=== PATIENT | male | born 1930 | race Caucasian/White ===

== ENCOUNTER → 2016-07-11 | Outpatient (CLI) | payer MEDICARE, BC ==
[2016-07-11 15:07] LABS: Blood Urea Nitrogen 20 mg/dL (9-20); Non-African American GFR(MDRD) 51 (>60 ml/min/1.73 sqM)
== END | disposition home or self-care (01) ==
LOC: LABWHC1 14:24
PROVIDERS: ATTEND Physical Medicine & Rehabilitation
DX: M50.122 Cervical disc disorder at C5-C6 level with radiculopathy (principal); M50.321 Other cervical disc degeneration at C4-C5 level; M47.812 Spondylosis without myelopathy or radiculopathy, cervical region; R29.2 Abnormal reflex
CPT/HCPCS: 36415; 82565; 84520

== ENCOUNTER 2016-07-19 19:39 | Emergency (ER) | payer MEDICARE, BC ==
[2016-07-19 19:50] VITALS: BP 142/78; PULSE 74; RESP 20; TEMP 98.4
--- NOTE | 2016-07-19 21:01 | ED ---
General Adult HPI - General Chief complaint: Extremity Problem,Nontraumatic Stated complaint: Shoulder pain Time Seen by Provider: 07/19/16 20:38 Source: patient, family, RN notes reviewed Mode of arrival: wheelchair Limitations: no limitations - History of Present Illness Initial comments: Patient is a pleasant 86-year-old male presenting to the emergency department complaining of right shoulder pain. Symptoms have been present for 8 months. Symptoms have been worse for the past one month. Patient has seen a neurologist for this as well as pain specialist and orthopedic doctor. Patient has had x-rays and MRIs. Patient was told he had disc problems. Pain is worse today than normal. Discomfort is mostly in the right side of the neck and right trapezius region. Discomfort sometimes changes with positions. Patient has dropped staff when pain gets worse however denies any specific weakness. Patient does have burning radiating down the arm. Patient does have a history of foot drop however this has improved with physical therapy and has been present for over a year. No new weakness. - Related Data Home Medications Medication Instructions Recorded Confirmed Losartan [Cozaar] 50 mg PO DAILY 10/29/14 07/19/16 amLODIPine [Norvasc] 5 mg PO DAILY 10/29/14 07/19/16 Aspirin EC [Ecotrin] 81 mg PO HS 11/28/15 07/19/16 Previous Rx's Medication Instructions Recorded traMADol HCl [Ultram] 50 mg PO Q6H PRN #20 tab 07/19/16 Allergies Allergy/AdvReac Type Severity Reaction Status Date / Time Sulfa (Sulfonamide Allergy Unknown Verified 07/19/16 19:50 Antibiotics) Review of Systems ROS Statement: Those systems with pertinent positive or pertinent negative responses have been documented in the HPI. ROS Other: All systems not noted in ROS Statement are negative. Constitutional: Denies: fever Eyes: Denies: eye pain ENT: Denies: ear pain Respiratory: Denies: cough Cardiovascular: Denies: chest pain Endocrine: Denies: fatigue Gastrointestinal: Denies: abdominal pain Genitourinary: Denies: dysuria Musculoskeletal: Reports: other (Shoulder pain) Skin: Denies: rash Neurological: Reports: paresthesias. Denies: headache, weakness Psychiatric: Reports: anxiety Past Medical History Past Medical History: Hypertension History of Any Multi-Drug Resistant Organisms: None Reported Past Surgical History: Cholecystectomy, Hernia Repair Past Psychological History: No Psychological Hx Reported Smoking Status: Never smoker Past Alcohol Use History: Occasional Past Drug Use History: None Reported General Exam Limitations: no limitations General appearance: alert, in no apparent distress Head exam: Present: atraumatic, normocephalic Eye exam: Present: normal appearance, PERRL, EOMI. Absent: nystagmus ENT exam: Present: normal oropharynx Neck exam: Present: tenderness (Mild tenderness posterior and right neck.) Respiratory exam: Present: normal lung sounds bilaterally Cardiovascular Exam: Present: regular rate, normal rhythm GI/Abdominal exam: Present: soft. Absent: tenderness Extremities exam: Present: normal inspection Back exam: Present: tenderness (Mild tenderness right trapezius Just lateral to the neck) Neurological exam: Present: alert, oriented X3, CN II-XII intact. Absent: motor sensory deficit Expanded Patient oriented to: Present: person, place, time Speech: Present: fluid speech Cranial nerves: EOM's Intact: Normal, Facial Sensation: Normal Sensory exam: Upper Extremity Light Touch: Normal, Lower Extremity Light Touch: Normal Motor strength exam: RUE: 5, LUE: 5, RLE: 5, LLE: 5 Eye Response: (4) open spontaneously Motor Response: (6) obeys commands Verbal Response: (5) oriented Psychiatric exam: Present: normal affect, normal mood Skin exam: Absent: rash Course Vital Signs 07/19/16 19:46 Temperature 98.4 F Pulse Rate 74 Respiratory 20 Rate Blood Pressure 142/78 O2 Sat by Pulse 97 Oximetry EKG Findings - EKG Comments: EKG Findings:: Normal sinus rhythm at 64. KS 182. QRS 86. QT 418. QTC 431. Left axis. Normal QRS. Nonspecific T waves. Disposition Clinical Impression: Cervical radiculopathy Disposition: HOME SELF-CARE Condition: Stable Instructions: Cervical Radiculopathy (ED), Neck Pain (ED) Additional Instructions: Please follow-up with your primary care physician and orthopedic doctor on Thursday. Return for uncontrolled pain, weakness, loss of sensation, leg weakness , worsening symptoms or any other concerns. Prescriptions: traMADol HCl [Ultram] 50 mg PO Q6H PRN #20 tab PRN Reason: Pain/Discomfort Referrals: Isak Pedersen MD [Primary Care Provider] - 1-2 days Christos Carrera DO [Doctor of Osteopathic Medicine] - 1-2 days Milan Barba DO [Doctor of Osteopathic Medicine] - 1-2 days Farshad London DO [Doctor of Osteopathic Medicine] - 1-2 days Time of Disposition: 21:01
[2016-07-19] MEDS: KETOROLAC 30 MG/ML 1 ML VIAL IVP STA (21:43)
[2016-07-19] MEDS: MORPHINE SULFATE 4 MG/ML SYRINGE IV STA ×2 (21:43→21:47)
== END 2016-07-19 21:54 | disposition home or self-care (01) ==
LOC: EC 19:39
DX: M54.12 Radiculopathy, cervical region (principal); Z79.82 Long term (current) use of aspirin; Z79.899 Other long term (current) drug therapy; Z88.2 Allergy status to sulfonamides; I10 Essential (primary) hypertension
CPT/HCPCS: 99283; 96375; 96374; J2270; J1885

== ENCOUNTER → 2016-07-21 | Outpatient (CLI) | payer MEDICARE, BC ==
[2016-07-21 15:49] LABS: Basophils % (A) 1 %; CH 30.5; CHCM 33.4; Eosinophils # (A) 0.3 k/uL (0-0.7); Eosinophils % (A) 3 %; HDW 2.61; HGB 15.2 gm/dL (13.0-17.5); Luc # (Auto) 0.11; Luc % (Auto) 1; Lymphocytes # (A) 1.3 k/uL (1.0-4.8); Lymphocytes % (A) 17 %; MCH 29.8 pg (25.0-35.0); MCHC 32.4 g/dL (31.0-37.0); MCV 91.9 fL (80.0-100.0); Mean Platelet Volume 7.4; Monocytes # (A) 0.5 k/uL (0-1.0); Monocytes % (A) 7 %; Neutrophils # (A) 5.6 k/uL (1.3-7.7); Neutrophils % (A) 71 %; RBC 5.12 m/uL (4.30-5.90); RDW 13.7 % (11.5-15.5); WBC 7.8 k/uL (3.8-10.6); WBC (Perox) 7.08
[2016-07-21 17:40] LABS: Appearance,Urine Clear (Clear); Bilirubin,Urine Negative (Negative); Glucose,Urine (UA) Negative (Negative); Ketones,Urine Negative (Negative); Leukocyte Esterase,Urine Negative (Negative); Nitrite,Urine Negative (Negative); PH, Urine 5.5 (5.0-8.0); Protein,Urine Negative (Negative); Specific Gravity,Urine 1.009 (1.001-1.035); UA Billing (MACRO vs. MICRO) CHEM; Urobilinogen,Urine <2.0 mg/dL (<2.0)
== END | disposition home or self-care (01) ==
LOC: LABWHC1 15:22
PROVIDERS: ATTEND Physical Medicine & Rehabilitation
DX: M54.2 Cervicalgia (principal); M50.122 Cervical disc disorder at C5-C6 level with radiculopathy; M50.123 Cervical disc disorder at C6-C7 level with radiculopathy; M50.321 Other cervical disc degeneration at C4-C5 level; M50.322 Other cervical disc degeneration at C5-C6 level; M50.323 Other cervical disc degeneration at C6-C7 level; M47.812 Spondylosis without myelopathy or radiculopathy, cervical region; R29.2 Abnormal reflex
CPT/HCPCS: 36415; 81003; 85025; 87086

== ENCOUNTER 2017-01-06 17:14 | Inpatient (IN) | payer MEDICARE, BC ==
--- NOTE | 2017-01-06 17:47 | ED ---
General Adult HPI - General Chief complaint: Shortness of Breath Stated complaint: SOB Time Seen by Provider: 01/06/17 17:26 Source: patient, RN notes reviewed Mode of arrival: ambulatory Limitations: no limitations - History of Present Illness Initial comments: This is an 86-year-old male presents emergency Department with multiple complaints. Patient states that he has been short of breath over the last 1 week. Patient states that he hashad exertional shortness of breath. He states they usually climbs 3 flights of stairs to his apartment on the third floor but states that he cannot make it up one flight. Patient states that he started having tightness in his chest. Patient states that the shortness breath is better at rest. Patient states he used to be on Lasix life currently is not on any Lasix. Patient states he had an echo which she believes he may have had some mild CHF. Patient states he has not noticed any major swelling of his lower extremities. Patient states he has no history of asthma or COPD. Patient denies fever, chills or any URI symptoms. Patient states that he also has had some confusion which was noticed by his therapist today and that they felt that he needed to be evaluated. Patient is brought to emergency department by his daughter. Patient has had bouts with confusion the past in which he related to TIAs. Patient does take a full dose aspirin daily. Patient also complains of pain that radiates down his left arm. He states his been having problems with his neck in which she is in therapy and states that he occasionally has problems at he has pain that radiates down his right arm but usually not the left. Patient denies any weakness associated with it. Denies any surgeries or facial drooping. Patient's family member the room states that he is at his normal baseline at this time. - Related Data Home Medications Medication Instructions Recorded Confirmed Losartan [Cozaar] 50 mg PO DAILY 10/29/14 01/06/17 amLODIPine [Norvasc] 5 mg PO DAILY 10/29/14 01/06/17 Aspirin EC [Ecotrin] 81 mg PO HS 11/28/15 01/06/17 Acetaminophen [Tylenol] 325 mg PO BID PRN 01/06/17 01/06/17 Gabapentin [Neurontin] 300 mg PO TID 01/06/17 01/06/17 Ibuprofen [Motrin] 200 mg PO DAILY PRN 01/06/17 01/06/17 L.acidoph,Paracasei, B.lactis 1 cap PO DAILY 01/06/17 01/06/17 [Probiotic] Simvastatin [Zocor] 20 mg PO DAILY 01/06/17 01/06/17 Tamsulosin HCl [Flomax] 0.4 mg PO DAILY 01/06/17 01/06/17 methylPREDNISolone [Medrol Dose See Taper PO DIRECTED 01/06/17 01/06/17 Pack] Allergies Allergy/AdvReac Type Severity Reaction Status Date / Time Sulfa (Sulfonamide Allergy Unknown Verified 01/06/17 18:55 Antibiotics) Review of Systems ROS Statement: Those systems with pertinent positive or pertinent negative responses have been documented in the HPI. ROS Other: All systems not noted in ROS Statement are negative. Past Medical History Past Medical History: CVA/TIA, Hypertension History of Any Multi-Drug Resistant Organisms: None Reported Past Surgical History: Cholecystectomy, Hernia Repair Past Psychological History: No Psychological Hx Reported Smoking Status: Never smoker Past Alcohol Use History: Occasional Past Drug Use History: None Reported General Exam Limitations: no limitations General appearance: alert, in no apparent distress Head exam: Present: atraumatic, normocephalic, normal inspection Eye exam: Present: normal appearance, PERRL, EOMI. Absent: scleral icterus, conjunctival injection, periorbital swelling ENT exam: Present: normal exam, normal oropharynx, mucous membranes moist, TM's normal bilaterally, normal external ear exam Neck exam: Present: normal inspection, full ROM. Absent: tenderness, meningismus, lymphadenopathy Respiratory exam: Present: normal lung sounds bilaterally. Absent: respiratory distress, wheezes, rales, rhonchi, stridor Cardiovascular Exam: Present: regular rate, normal rhythm, normal heart sounds. Absent: systolic murmur, diastolic murmur, rubs, gallop, clicks GI/Abdominal exam: Present: soft, normal bowel sounds. Absent: distended, tenderness, guarding, rebound, rigid Extremities exam: Present: normal inspection, full ROM, normal capillary refill. Absent: tenderness, pedal edema, joint swelling, calf tenderness Back exam: Present: full ROM. Absent: tenderness Neurological exam: Present: alert, oriented X3, CN II-XII intact, reflexes normal, other (Ktcder-gi-yeja intact bilaterally without over shooting). Absent : motor sensory deficit Skin exam: Present: warm, dry, intact, normal color. Absent: rash Course Vital Signs 01/06/17 01/06/17 01/06/17 17:17 18:40 19:20 Temperature 98 F 98.3 F 98.0 F Pulse Rate 98 80 77 Respiratory 20 18 16 Rate Blood Pressure 143/76 149/77 156/91 O2 Sat by Pulse 94 L 93 L 96 Oximetry 01/06/17 01/06/17 20:02 20:40 Temperature Pulse Rate 75 74 Respiratory 16 18 Rate Blood Pressure 168/88 174/82 O2 Sat by Pulse 95 95 Oximetry EKG Findings - EKG Comments: EKG Findings:: EKG performed at 17:44 sinus rhythm with first-degree AV block left axis deviation with a rate of 87 NC interval is 236 QS duration 86 QT/QTC 366/440 Medical Decision Making - Lab Data Result diagrams: 01/06/17 17:44 01/06/17 17:44 Lab Results 01/06/17 01/06/17 01/06/17 Range/Units 17:44 17:44 17:44 WBC 7.6 (3.8-10.6) k/uL RBC 5.13 (4.30-5.90) m/uL Hgb 15.8 (13.0-17.5) gm/dL Hct 44.6 (39.0-53.0) % MCV 86.8 (80.0-100.0) fL MCH 30.8 (25.0-35.0) pg MCHC 35.5 (31.0-37.0) g/dL RDW 13.7 (11.5-15.5) % Plt Count 228 (150-450) k/uL Neutrophils % 87 % Lymphocytes % 9 % Monocytes % 3 % Eosinophils % 0 % Basophils % 0 % Neutrophils # 6.6 (1.3-7.7) k/uL Lymphocytes # 0.6 L (1.0-4.8) k/uL Monocytes # 0.2 (0-1.0) k/uL Eosinophils # 0.0 (0-0.7) k/uL Basophils # 0.0 (0-0.2) k/uL PT (9.0-12.0) sec INR (<1.1) APTT (22.0-30.0) sec D-Dimer (<0.60) mg/L FEU Sodium 140 (137-145) mmol/L Potassium 4.5 (3.5-5.1) mmol/L Chloride 105 (98-107) mmol/L Carbon Dioxide 21 L (22-30) mmol/L Anion Gap 14 mmol/L BUN 17 (9-20) mg/dL Creatinine 1.00 (0.66-1.25) mg/dL Est GFR (MDRD) Af Amer >60 (>60 ml/min/1.73 sqM) Est GFR (MDRD) Non-Af >60 (>60 ml/min/1.73 sqM) Glucose 128 H (74-99) mg/dL Calcium 9.9 (8.4-10.2) mg/dL Magnesium 2.1 (1.6-2.3) mg/dL Total Bilirubin 0.5 (0.2-1.3) mg/dL AST 27 (17-59) U/L ALT 34 (21-72) U/L Alkaline Phosphatase 85 (38-126) U/L Total Creatine Kinase 122 (55-170) U/L CK-MB (CK-2) 1.4 (0.0-2.4) ng/mL CK-MB (CK-2) Rel Index 1.1 Troponin I <0.012 (0.000-0.034) ng/mL NT-Pro-B Natriuret Pep pg/mL Total Protein 7.2 (6.3-8.2) g/dL Albumin 4.6 (3.5-5.0) g/dL Urine Color Urine Appearance (Clear) Urine pH (5.0-8.0) Ur Specific [place] (1.001-1.035) Urine Protein (Negative) Urine Glucose (UA) (Negative) Urine Ketones (Negative) Urine Blood (Negative) Urine Nitrite (Negative) Urine Bilirubin (Negative) Urine Urobilinogen (<2.0) mg/dL Ur Leukocyte Esterase (Negative) Urine RBC (0-5) /hpf Urine Mucus (None) /hpf 01/06/17 01/06/17 01/06/17 Range/Units 17:44 17:44 18:45 WBC (3.8-10.6) k/uL RBC (4.30-5.90) m/uL Hgb (13.0-17.5) gm/dL Hct (39.0-53.0) % MCV (80.0-100.0) fL MCH (25.0-35.0) pg MCHC (31.0-37.0) g/dL RDW (11.5-15.5) % Plt Count (150-450) k/uL Neutrophils % % Lymphocytes % % Monocytes % % Eosinophils % % Basophils % % Neutrophils # (1.3-7.7) k/uL Lymphocytes # (1.0-4.8) k/uL Monocytes # (0-1.0) k/uL Eosinophils # (0-0.7) k/uL Basophils # (0-0.2) k/uL PT 10.8 (9.0-12.0) sec INR 1.1 (<1.1) APTT 24.9 (22.0-30.0) sec D-Dimer 0.61 H (<0.60) mg/L FEU Sodium (137-145) mmol/L Potassium (3.5-5.1) mmol/L Chloride (98-107) mmol/L Carbon Dioxide (22-30) mmol/L Anion Gap mmol/L BUN (9-20) mg/dL Creatinine (0.66-1.25) mg/dL Est GFR (MDRD) Af Amer (>60 ml/min/1.73 sqM) Est GFR (MDRD) Non-Af (>60 ml/min/1.73 sqM) Glucose (74-99) mg/dL Calcium (8.4-10.2) mg/dL Magnesium (1.6-2.3) mg/dL Total Bilirubin (0.2-1.3) mg/dL AST (17-59) U/L ALT (21-72) U/L Alkaline Phosphatase (38-126) U/L Total Creatine Kinase (55-170) U/L CK-MB (CK-2) (0.0-2.4) ng/mL CK-MB (CK-2) Rel Index Troponin I (0.000-0.034) ng/mL NT-Pro-B Natriuret Pep 446 pg/mL Total Protein (6.3-8.2) g/dL Albumin (3.5-5.0) g/dL Urine Color Yellow Urine Appearance Clear (Clear) Urine pH 5.5 (5.0-8.0) Ur Specific [place] 1.011 (1.001-1.035) Urine Protein 1+ H (Negative) Urine Glucose (UA) Negative (Negative) Urine Ketones Negative (Negative) Urine Blood Small H (Negative) Urine Nitrite Negative (Negative) Urine Bilirubin Negative (Negative) Urine Urobilinogen <2.0 (<2.0) mg/dL Ur Leukocyte Esterase Negative (Negative) Urine RBC 4 (0-5) /hpf Urine Mucus Rare H (None) /hpf Disposition Clinical Impression: SOB (shortness of breath) on exertion, Unstable angina, TIA (transient ischemic attack) Disposition: ADMITTED IP TO THIS HOSP Condition: Fair Referrals: Liz Arce MD [Primary Care Provider] - 1-2 days
[2017-01-06 18:01] LABS: Basophils % (A) 0 %; CH 30.6; CHCM 35.4; Eosinophils % (A) 0 %; HCT 44.6 % (39.0-53.0); HDW 2.68; HGB 15.8 gm/dL (13.0-17.5); Luc # (Auto) 0.05; Luc % (Auto) 1; Lymphocytes # (A) 0.6 k/uL (1.0-4.8); Lymphocytes % (A) 9 %; MCH 30.8 pg (25.0-35.0); MCHC 35.5 g/dL (31.0-37.0); MCV 86.8 fL (80.0-100.0); Mean Platelet Volume 7.1; Monocytes # (A) 0.2 k/uL (0-1.0); Monocytes % (A) 3 %; Neutrophils # (A) 6.6 k/uL (1.3-7.7); Neutrophils % (A) 87 %; RBC 5.13 m/uL (4.30-5.90); RDW 13.7 % (11.5-15.5); WBC 7.6 k/uL (3.8-10.6); WBC (Perox) 6.79
[2017-01-06 18:16] LABS: INR 1.1 (<1.1); Partial Thromboplastin Time 24.9 sec (22.0-30.0); Prothrombin Time 10.8 sec (9.0-12.0)
[2017-01-06 18:21] LABS: ALT 34 U/L (21-72); AST 27 U/L (17-59); Alkaline Phosphatase 85 U/L (38-126); Anion Gap 14 mmol/L; Blood Urea Nitrogen 17 mg/dL (9-20); Calcium 9.9 mg/dL (8.4-10.2); Carbon Dioxide 21 mmol/L (22-30); Chloride 105 mmol/L (98-107); Creatine Kinase 122 U/L (55-170); Glucose 128 mg/dL (74-99); Magnesium 2.1 mg/dL (1.6-2.3); Non-African American GFR(MDRD) >60 (>60 ml/min/1.73 sqM); Potassium 4.5 mmol/L (3.5-5.1); Sodium 140 mmol/L (137-145); Total Bilirubin 0.5 mg/dL (0.2-1.3); Total Protein 7.2 g/dL (6.3-8.2)
--- NOTE | 2017-01-06 18:24 | XR ---
EXAMINATION TYPE: XR chest 2V DATE OF EXAM: 01/06/2017 COMPARISON: Prior chest x-ray 10/29/2014 HISTORY: Shortness of breath, difficulty breathing TECHNIQUE: Frontal and lateral views of the chest are obtained. FINDINGS: There is no focal air space opacity, pleural effusion, or pneumothorax seen. The cardiac silhouette size is within normal limits. There are overlying cardiac leads. There is evidence of old granulomatous disease. The osseous structures are intact. IMPRESSION: No acute cardiopulmonary process.
--- NOTE | 2017-01-06 18:29 | CT ---
EXAMINATION TYPE: CT brain wo con DATE OF EXAM: 01/06/2017 COMPARISON: Prior head CT 11/28/2015 HISTORY: Episode of weakness and confusion CT DLP: 1012.2 mGycm Automated exposure control for dose reduction was used. Helical acquisition through the brain FINDINGS: Periventricular white matter shows patchy low attenuation. Cortical atrophy is stable. Calvarium is i ntact. No hemorrhage or hydrocephalus. Calvarium is intact. IMPRESSION: STABLE EXAM, NO ACUTE ABNORMALITIES EVIDENT. 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
[2017-01-06 18:33] LABS: Creatine Kinase MB 1.4 ng/mL (0.0-2.4); Troponin I <0.012 ng/mL (0.000-0.034)
[2017-01-06 19:02] LABS: Appearance,Urine Clear (Clear); Bilirubin,Urine Negative (Negative); Glucose,Urine (UA) Negative (Negative); Ketones,Urine Negative (Negative); Leukocyte Esterase,Urine Negative (Negative); Mucus,Urine Rare /hpf; Nitrite,Urine Negative (Negative); PH, Urine 5.5 (5.0-8.0); Particle Count 621; Protein,Urine 1+ (Negative); RBC,Urine 4 /hpf (0-5); Specific Gravity,Urine 1.011 (1.001-1.035); UA Billing (MACRO vs. MICRO) MICRO; Urobilinogen,Urine <2.0 mg/dL (<2.0)
[2017-01-06] MEDS ORDERED: RX INFO: IV CONTRAST WAS GIVEN 1 EACH MISC MISCELLANE PRN (19:04)
--- NOTE | 2017-01-06 20:03 | CT ---
EXAMINATION TYPE: CT chest angio for PE DATE OF EXAM: 01/06/2017 COMPARISON: Chest x-ray same date HISTORY: Shortness of breath CT DLP: 358.9 mGycm Automated exposure control for dose reduction was used. CONTRAST: CT Chest for pulmonary embolism performed with with IV Contrast, patient injected with 100 mL of Omni paque 350. FINDINGS: LUNGS: The lungs are grossly clear, there is no concerning parenchymal mass or nodule identified. So me mild emphysematous changes are suspected. There is no pleural effusion or pneumothorax seen. The tracheobronchial tree is patent. MEDIASTINUM: There is satisfactory enhancement of the pulmonary artery and its branches, there is no CT evidence for pulmonary embolism. There are no greater than 1 cm hilar or mediastinal lymph nodes. Calcified left hilar nodes are present. No pericardial effusion is seen. AORTA: No additional significant abnormality is seen. OTHER: There is a small hiatal hernia present. Coronary artery calcifications are present. Scattered granuloma present within the spleen. Hypodense foci within the liver are indeterminate. The largest is within the inferior right lobe and measures approximately 2.7 cm. There are at least 5 lesions. Pa tient is post cholecystectomy. IMPRESSION: No evident pulmonary embolism. Old granulomatous disease. Hiatal hernia. Coronary artery disease. Ind eterminate liver lesions.
[2017-01-06] MEDS ORDERED: amLODIPine 5 MG TAB PO STA (20:55)
[2017-01-06] MEDS ORDERED: NITROGLYCERIN SL TABS 0.4 MG TAB SUBLINGUAL PRN (21:15)
[2017-01-06] MEDS ORDERED: HEPARIN SODIUM,PORCINE 5,000 UNIT/ML 1 ML VIAL IV ONE (21:15)
[2017-01-06] MEDS: HEPARIN SODIUM,PORCINE/D5W PMX 25,000 UNIT in DEXTROSE/WATER 1 500ML.BAG IV SCH (21:29)
[2017-01-06 23:04] VITALS: BMI 26.4
[2017-01-07 00:13] LABS: Creatine Kinase 111 U/L (55-170)
[2017-01-07 00:27] LABS: Creatine Kinase MB 1.5 ng/mL (0.0-2.4); Troponin I <0.012 ng/mL (0.000-0.034)
[2017-01-07] MEDS ORDERED: Acetaminophen-Codeine 300-30mg TAB PO PRN (00:45)
[2017-01-07] MEDS: GABAPENTIN 300 MG CAP PO SCH ×4 (00:58→21:45)
[2017-01-07 06:42] LABS: Cholesterol 117 mg/dL (<200); HDL Cholesterol 36 mg/dL (40-60); Triglycerides 103 mg/dL (<150)
[2017-01-07 06:47] LABS: Creatine Kinase 87 U/L (55-170)
[2017-01-07 07:00] LABS: Creatine Kinase MB 1.3 ng/mL (0.0-2.4); Troponin I <0.012 ng/mL (0.000-0.034)
[2017-01-07] MEDS ORDERED: ACETAMINOPHEN TAB 325 MG TAB PO PRN (07:50)
[2017-01-07] MEDS: ASPIRIN 325 MG TAB PO SCH ×2 (07:58→08:00)
--- NOTE | 2017-01-07 08:56 | P.CRDCN ---
History of Present Illness Consult date: 01/07/17 Requesting physician: Yonathan Blake Consult reason: shortness of breath Chief complaint: Exertional shortness of breath History of present illness: This is a very pleasant 86-year-old gentleman who follows with Dr. Dhillon in the office. He has a known history of hypertension, hyperlipidemia, he is extremely physically active, exercises daily. For the past 4 or 5 days, he states that with minimal exertion he has been noticing that he gets extremely short of breath. He also feels a pressure sensation up near his throat. Patient also intermittently gets a discomfort and numbness which starts in the left shoulder area and radiates down the arm. He has been attributing this to a neck problem. Patient states that going upstairs he becomes short of breath, he sits down and rests then resumes activity and even walking a short distance following that again becomes very short of breath and tired. He denies any history of any lung problems, he is a nonsmoker. Patient states that he has had a stress test with Dr. Dhillon within the past one year. No prior documented coronary artery disease. Troponins have been negative 3. Potassium 4.5, BUN 17, creatinine 1.0, BNP level 446. CBC normal. Chest x-ray does not reveal any acute cardiopulmonary process. CTA of the chest was performed which did not reveal any evidence of a pulmonary embolism. Initial EKG shows a normal sinus rhythm with no acute changes. Subsequent EKG performed this morning shows a normal sinus rhythm with no acute changes. At the time of my examination this morning patient is currently symptom-free, however he has not been up out of bed yet either. Blood pressure 120/60 with a heart rate in the 60s. 6% on room air. Past Medical History Past Medical History: CVA/TIA, Hypertension History of Any Multi-Drug Resistant Organisms: None Reported Past Surgical History: Cholecystectomy, Hernia Repair Past Psychological History: No Psychological Hx Reported Smoking Status: Never smoker Past Alcohol Use History: Occasional Past Drug Use History: None Reported - Past Family History Father Family Medical History: No Reported History Mother Family Medical History: No Reported History Medications and Allergies Home Medications Medication Instructions Recorded Confirmed Type Losartan [Cozaar] 50 mg PO DAILY 10/29/14 01/06/17 History amLODIPine [Norvasc] 5 mg PO DAILY 10/29/14 01/06/17 History Aspirin EC [Ecotrin] 81 mg PO HS 11/28/15 01/06/17 History Acetaminophen [Tylenol] 325 mg PO BID PRN 01/06/17 01/06/17 History Gabapentin [Neurontin] 300 mg PO TID 01/06/17 01/06/17 History Ibuprofen [Motrin] 200 mg PO DAILY PRN 01/06/17 01/06/17 History L.acidoph,Paracasei, B.lactis 1 cap PO DAILY 01/06/17 01/06/17 History [Probiotic] Simvastatin [Zocor] 20 mg PO DAILY 01/06/17 01/06/17 History Tamsulosin HCl [Flomax] 0.4 mg PO DAILY 01/06/17 01/06/17 History methylPREDNISolone [Medrol Dose See Taper PO DIRECTED 01/06/17 01/06/17 History Pack] Allergies Allergy/AdvReac Type Severity Reaction Status Date / Time Sulfa (Sulfonamide Allergy Unknown Verified 01/06/17 18:55 Antibiotics) Physical Exam Vitals: Vital Signs Temp Pulse Pulse Resp BP BP Pulse Ox 01/07/17 07:53 98.5 F 61 16 119/58 96 01/07/17 03:55 97.1 F L 63 17 135/62 93 L 01/07/17 03:35 55 L 16 01/07/17 00:15 97.5 F L 67 16 139/62 95 01/07/17 00:00 95 16 01/06/17 21:40 97.7 F 76 17 170/94 93 L 01/06/17 21:33 97.6 F 66 16 175/98 95 01/06/17 20:40 74 18 174/82 95 01/06/17 20:02 75 16 168/88 95 01/06/17 19:20 98.0 F 77 16 156/91 96 01/06/17 18:40 98.3 F 80 18 149/77 93 L 01/06/17 17:17 98 F 98 20 143/76 94 L Intake and Output 01/06/17 01/07/17 01/07/17 22:59 06:59 14:59 Intake Total 582.784 Output Total 1100 Balance -517.216 Intake: IV 180 0.9 180 Intake, IV Titration 162.784 Amount Heparin Sodium,Porcine/ 162.784 D5w Pmx 25,000 unit In Dextrose/Water 1 500ml. bag @ 12 UNITS/KG/HR 17. 63 mls/hr IV .Q24H [facility] Rx #:[id number] Oral 240 Output: Urine 1100 Other: Voiding Method Toilet # Voids 1 2 Weight 76.6 kg 76.6 kg PHYSICAL EXAMINATION: HEENT: Head is atraumatic, normocephalic. Pupils equal, round. Neck is supple. There is no elevated jugular venous pressure. HEART EXAMINATION: Heart S1 and S2 systolic murmur is heard CHEST EXAMINATION: Lungs are clear to auscultation and precussion. No chest wall tenderness is noted on palpation or with deep breathing. ABDOMEN: Soft, nontender. Bowel sounds are heard. No organomegaly noted. EXTREMITIES: 2+ peripheral pulses with no evidence of peripheral edema and no calf tenderness noted. NEUROLOGIC patient is awake, alert and oriented -3. . Results 01/06/17 17:44 01/06/17 17:44 Cardiac Enzymes 01/06/17 01/06/17 01/06/17 Range/Units 17:44 17:44 23:21 AST 27 (17-59) U/L CK-MB (CK-2) 1.4 1.5 (0.0-2.4) ng/mL Troponin I <0.012 <0.012 (0.000-0.034) ng/mL 01/07/17 Range/Units 05:33 AST (17-59) U/L CK-MB (CK-2) 1.3 (0.0-2.4) ng/mL Troponin I <0.012 (0.000-0.034) ng/mL Coagulation 01/06/17 01/07/17 Range/Units 17:44 03:45 PT 10.8 (9.0-12.0) sec APTT 24.9 44.1 H (22.0-30.0) sec Lipids 01/07/17 Range/Units 05:33 Triglycerides 103 (<150) mg/dL Cholesterol 117 (<200) mg/dL HDL Cholesterol 36 L (40-60) mg/dL CBC 01/06/17 Range/Units 17:44 WBC 7.6 (3.8-10.6) k/uL RBC 5.13 (4.30-5.90) m/uL Hgb 15.8 (13.0-17.5) gm/dL Hct 44.6 (39.0-53.0) % Plt Count 228 (150-450) k/uL Comprehensive Metabolic Panel 01/06/17 Range/Units 17:44 Sodium 140 (137-145) mmol/L Potassium 4.5 (3.5-5.1) mmol/L Chloride 105 (98-107) mmol/L Carbon Dioxide 21 L (22-30) mmol/L BUN 17 (9-20) mg/dL Creatinine 1.00 (0.66-1.25) mg/dL Glucose 128 H (74-99) mg/dL Calcium 9.9 (8.4-10.2) mg/dL AST 27 (17-59) U/L ALT 34 (21-72) U/L Alkaline Phosphatase 85 (38-126) U/L Total Protein 7.2 (6.3-8.2) g/dL Albumin 4.6 (3.5-5.0) g/dL Current Medications Generic Name Dose Route Start Last Admin Trade Name Freq PRN Reason Stop Dose Admin Acetaminophen 325 mg 01/07/17 07:50 Tylenol Tab PO BID PRN Pain Acetaminophen/Codeine Phosphate 1 each 01/07/17 00:45 01/07/17 00:58 Tylenol #3 PO 1 each Q6HR PRN Administration Pain Amlodipine Besylate 5 mg 01/07/17 09:00 Norvasc PO DAILY [facility] Aspirin 325 mg 01/07/17 09:00 01/07/17 08:00 Aspirin PO Not Given DAILY [facility] Aspirin 81 mg 01/07/17 21:00 Aspirin PO HS [facility] Atorvastatin Calcium 10 mg 01/07/17 09:00 Lipitor PO DAILY [facility] Gabapentin 300 mg 01/07/17 01:00 01/07/17 07:59 Neurontin PO 300 mg TID [facility] Administration Heparin Sodium/Dextrose 25,000 500 mls @ 17.63 mls/hr 01/06/17 21:15 05:43 unit/ IV Solution IV 14 units/kg/hr .Q24H [facility] 20.57 mls/hr Protocol Titration 12 UNITS/KG/HR Lactobacillus Acidoph/Bulgaricus 1 each 01/07/17 09:00 Lactinex PO DAILY [facility] Losartan Potassium 50 mg 01/07/17 09:00 Cozaar PO DAILY [facility] Miscellaneous Information 1 each 01/06/17 19:04 01/06/17 20:01 Rx Info: Iv Contrast Was Given MISCELLANE 01/08/17 19:04 1 each DAILY PRN Administration Per Protocol Nitroglycerin 0.4 mg 01/06/17 21:15 Nitrostat SUBLINGUAL Q5M PRN Chest Pain Tamsulosin HCl 0.4 mg 01/07/17 09:00 Flomax PO DAILY [facility] Intake and Output 01/06/17 01/07/17 01/07/17 22:59 06:59 14:59 Intake Total 582.784 Output Total 1100 Balance -517.216 Intake: IV 180 0.9 180 Intake, IV Titration 162.784 Amount Heparin Sodium,Porcine/ 162.784 D5w Pmx 25,000 unit In Dextrose/Water 1 500ml. bag @ 12 UNITS/KG/HR 17. 63 mls/hr IV .Q24H [facility] Rx #:[id number] Oral 240 Output: Urine 1100 Other: Voiding Method Toilet # Voids 1 2 Weight 76.6 kg 76.6 kg 01/06/17 17:44 01/06/17 17:44 EKG Interpretations (text) EKG shows normal sinus rhythm with no acute changes. Assessment and Plan Plan: Assessment and plan #1 exertional dyspnea suggestive of a possible angina. Troponins negative 3. EKG shows normal sinus rhythm with no acute changes. #2 hypertension #3 hyperlipidemia Plan We will obtain an echocardiogram with Doppler study. We will also request Dr. Dhillon's progress note and most recent stress test which was performed in the office. Further recommendations to follow. DNP note has been reviewed, I agree with a documented findings and plan of care. Patient was seen and examined.
--- NOTE | 2017-01-07 10:42 | ECHOF ---
Referral Reason:exertional sob MEASUREMENTS -------- HEIGHT: 170.2 cm WEIGHT: 76.2 kg BP: 119/58 RVIDd: 2.6 cm (< 3.3) IVSd: 1.0 cm (0.6 - 1.1) LVIDd: 3.8 cm (3.9 - 5.3) LVPWd: 1.1 cm (0.6 - 1.1) IVSs: 1.4 cm LVIDs: 2.5 cm LVPWs: 1.5 cm LA Diam: 2.6 cm (2.7 - 3.8) LAESV Index (A-L): 27.83 ml/m Ao Diam: 3.2 cm (2.0 - 3.7) AV Cusp: 2.3 cm (1.5 - 2.6) MV EXCURSION: 16.074 mm (> 18.000) MV EF SLOPE: 49 mm/s (70 - 150) EPSS: 0.6 cm MV E Francisco: 0.81 m/s MV DecT: 275 ms MV A Francisco: 0.89 m/s MV E/A Ratio: 0.92 RAP: 5.00 mmHg RVSP: 29.15 mmHg FINDINGS -------- Sinus rhythm. This was a technically good study. The left ventricular size is normal. There is borderline concentric left ventricular hypertrophy. Overall left ventricular systolic function is normal with, an EF between 55 - 60 %. The right ventricle is normal in size. Normal LA size by volume 22+/-6 ml/m2. The right atrium is normal in size. There is mild aortic valve sclerosis. Mild mitral annular calcification present. Mild mitral regurgitation is present. Mild tricuspid regurgitation present. Right ventricular systolic pressure is normal at < 35 mmHg. There is no pulmonic regurgitation present. The aortic root size is normal. Normal inferior vena cava with normal inspiratory collapse consistent with estimated right atrial pressure of 5 mmHg. There is no pericardial effusion. CONCLUSIONS -------- 1. Sinus rhythm. 2. Right ventricular systolic pressure is normal at < 35 mmHg. 3. There is no pulmonic regurgitation present. 4. The aortic root size is normal. 5. Normal inferior vena cava with normal inspiratory collapse consistent with estimated right atrial pressure of 5 mmHg. 6. There is no pericardial effusion. 7. This was a technically good study. 8. There is borderline concentric left ventricular hypertrophy. 9. Overall left ventricular systolic function is normal with, an EF between 55 - 60 %. 10. Normal LA size by volume 22+/-6 ml/m2. 11. There is mild aortic valve sclerosis. 12. Mild mitral annular calcification present. 13. Mild mitral regurgitation is present. 14. Mild tricuspid regurgitation present. ALUMINUM FABRICATION SUPERVISOR: Nola Mark RDCS
[2017-01-07] MEDS: TAMSULOSIN 0.4 MG CAP.ER.24H PO SCH (11:45)
[2017-01-07] MEDS: LACTOBACILLUS ACIDOPH & BULGAR 1 EACH PACKET PO SCH (11:45)
[2017-01-07] MEDS: amLODIPine 5 MG TAB PO SCH (11:45)
[2017-01-07] MEDS: LOSARTAN 50 MG TAB PO SCH (11:45)
[2017-01-07] MEDS: ATORVASTATIN 10 MG TAB PO SCH (11:45)
--- NOTE | 2017-01-07 13:47 | P.HPIM ---
History of Present Illness H&P Date: 01/07/17 Chief Complaint: Exertional shortness of breath, unstable angina, history of CVA , hypertensi 86-year-old male one of Dr. Arce's patient who is seen Dr[facility] basis who had apparently stress test back in August was slightly bit abnormal but decided not to do any further intervention at the time. [place] been doing good used to walk between [place] the time until the last few days when walking or climbing steps become extremely major effort causing him to have shortness of breath and increased neck and arm pain with cold sweat and palpitation. Symptoms Happening repeatedly till yesterday when patient was at physical therapy was more symptomatic physical therapist refused to do his session at the time and ask him to call his primary or his physiotherapist's assistant in to be seen. Patient was seen by his family and decided to come to the emergency department at [facility] with the above problem. From his complain and this onset looks like patient is having new onset of angina as unstable angina along with worsening dyspnea not been explained through his chest x-ray and CTA. Full testing of the ER done including blood work with moderately elevated d- dimer CTA was performed did not show any embolism his EKG showed atypical finding at the time troponin was normal but BNP was elevated. Patient was started on heparin drip nitro consult cardiology and admit patient to the hospital. Review his last stress test and discussed this with cardiology patient most likely need to go for heart cath especially with abnormal stress test from few weeks ago. Review of Systems Constitutional: Reports anorexia, Reports fatigue, Reports malaise, Denies as per HPI, Denies chills, Denies chronic headaches, Denies chronic pain, Denies daytime sleepiness, Denies fever, Denies lethargy, Denies night sweats, Denies poor appetite, Denies sweats, Denies weakness, Denies weight gain, Denies weight loss Eyes: bilateral as per HPI Ears: bilateral: decreased hearing Ears, nose, mouth and throat: Reports ant. neck pain, Reports nasal congestion, Reports sinus pressure, Denies as per HPI, Denies bleeding gums, Denies dental pain, Denies dysphagia, Denies epistaxis, Denies headache, Denies hoarseness, Denies mouth pain, Denies nasal discharge, Denies neck fullness/pressure, Denies neck lump, Denies nose pain, Denies odynophagia, Denies post-nasal drip, Denies sinus pain, Denies swelling in mouth, Denies swelling in throat, Denies sore throat, Denies vertigo, Denies voice changes Cardiovascular: Reports chest pain, Reports decreased exercise tolerance, Reports dyspnea on exertion, Reports edema, Reports high blood pressure, Reports irregular heart beat, Reports lightheadedness, Reports orthopnea, Reports palpitations, Reports rapid heart beat, Reports shortness of breath, Denies as per HPI, Denies claudication, Denies leg edema, Denies paroxysmal nocturnal dyspnea, Denies phlebitis, Denies syncope Respiratory: Reports congestion, Reports cough, Reports dyspnea, Reports respiratory infections, Denies as per HPI, Denies cough with sputum, Denies excessive sputum, Denies hemoptysis, Denies home oxygen, Denies pain, Denies pain on inspiration, Denies pleurisy, Denies sleep apnea, Denies snoring, Denies wheezing Gastrointestinal: Reports bloating, Reports dyspepsia, Reports indigestion, Reports nausea, Denies as per HPI, Denies abdominal pain, Denies belching, Denies BRBPR, Denies change in bowel habits, Denies coffee ground emesis, Denies constipation, Denies diarrhea, Denies early satiety, Denies excessive gas , Denies heartburn, Denies hematemesis, Denies hematochezia, Denies jaundice, Denies lactose intolerance, Denies loss of appetite, Denies melena, Denies vomiting Genitourinary: Reports nocturia, Reports polyuria, Denies as per HPI, Denies decreased libido, Denies difficulties fathering child, Denies discharge, Denies dysuria, Denies erectile dysfunction, Denies flank pain, Denies genital pain, Denies genital sores, Denies hematuria, Denies impotence, Denies incontinence, Denies kidney stones, Denies testicular lump, Denies testicular pain, Denies urinary frequency, Denies urinary hesitancy, Denies urinary retention Musculoskeletal: Reports myalgias, Reports neck pain, Denies as per HPI, Denies arm numbness/tingling, Denies atrophy, Denies fractures, Denies frequent falls, Denies gait dysfunction, Denies hot joints, Denies leg numbness/tingling, Denies limitation of motion, Denies loss of height, Denies low back pain, Denies morning stiffness, Denies muscle cramps, Denies muscle weakness, Denies neck stiffness, Denies prior amputations, Denies redness of joints, Denies shooting arm pain, Denies shooting leg pain Musculoskeletal: bilateral: ankle pain Integumentary: Reports pruritus, Reports rash, Denies as per HPI, Denies acne, Denies boils, Denies brittle nails, Denies change in hair/nails, Denies color changes, Denies darkening of skin, Denies depigmentation, Denies dryness, Denies foot/leg ulcers, Denies growths, Denies hirsutism, Denies lesions, Denies onychomycosis, Denies sores, Denies striae, Denies unusual bruising, Denies wounds Neurological: Reports burning pain, Reports confusion, Reports headaches, Reports memory loss, Reports tic, Reports tingling, Reports tremors, Reports weakness, Denies as per HPI, Denies aphasia, Denies ataxia, Denies balance difficulties, Denies change in mentation, Denies change in smell/taste, Denies change in speech, Denies convulsions, Denies double vision, Denies gait dysfunction, Denies head injury, Denies hearing difficulties, Denies lack of coordination, Denies loss of vision, Denies migraines, Denies motor disturbance , Denies numbness, Denies paralysis, Denies paresthesias, Denies seizures, Denies sensory deficit, Denies spasticity, Denies syncope, Denies transient paralysis, Denies vertigo, Denies visual changes Psychiatric: Reports anhedonia, Denies as per HPI, Denies anxiety, Denies anxiety attacks, Denies change in appetite, Denies change in libido, Denies change in sleep habits, Denies confusion, Denies depression, Denies difficulty concentrating, Denies disorientation, Denies hallucinations, Denies hopelessness , Denies hypersomnia, Denies insomnia, Denies irritability, Denies memory loss, Denies mood swings, Denies paranoia, Denies sadness/tearfulness, Denies sleep disturbances, Denies suicidal ideation Endocrine: Reports cold intolerance, Reports excessive thirst, Denies as per HPI , Denies deepening of the voice, Denies excessive sweating, Denies fatigue, Denies flushing, Denies heat intolerance, Denies high blood sugars, Denies increase in ring/shoe/hat size, Denies low blood sugars, Denies nocturia, Denies palpitations, Denies polydipsia, Denies polyphagia, Denies polyuria, Denies proptosis, Denies recent glucocorticoid use, Denies thyroid mass, Denies weight change Hematologic/Lymphatic: Reports easy bruising, Denies as per HPI, Denies easy bleeding, Denies lymphadenopathy, Denies lymphedema, Denies thrombophilia Allergic/Immunologic: Reports allergic rhinitis, Denies as per HPI, Denies anaphylaxis, Denies angioedema, Denies gluten intolerance, Denies persistent infections, Denies seasonal allergies, Denies urticaria, Denies wheezing Past Medical History Past Medical History: CVA/TIA, Hypertension History of Any Multi-Drug Resistant Organisms: None Reported Past Surgical History: Cholecystectomy, Hernia Repair Past Psychological History: No Psychological Hx Reported Smoking Status: Never smoker Past Alcohol Use History: Occasional Past Drug Use History: None Reported - Past Family History Father Family Medical History: No Reported History Mother Family Medical History: No Reported History Medications and Allergies Home Medications Medication Instructions Recorded Confirmed Type Losartan [Cozaar] 50 mg PO DAILY 10/29/14 01/06/17 History amLODIPine [Norvasc] 5 mg PO DAILY 10/29/14 01/06/17 History Aspirin EC [Ecotrin] 81 mg PO HS 11/28/15 01/06/17 History Acetaminophen [Tylenol] 325 mg PO BID PRN 01/06/17 01/06/17 History Gabapentin [Neurontin] 300 mg PO TID 01/06/17 01/06/17 History Ibuprofen [Motrin] 200 mg PO DAILY PRN 01/06/17 01/06/17 History L.acidoph,Paracasei, B.lactis 1 cap PO DAILY 01/06/17 01/06/17 History [Probiotic] Simvastatin [Zocor] 20 mg PO DAILY 01/06/17 01/06/17 History Tamsulosin HCl [Flomax] 0.4 mg PO DAILY 01/06/17 01/06/17 History methylPREDNISolone [Medrol Dose See Taper PO DIRECTED 01/06/17 01/06/17 History Pack] Allergies Allergy/AdvReac Type Severity Reaction Status Date / Time Sulfa (Sulfonamide Allergy Unknown Verified 01/06/17 18:55 Antibiotics) Physical Exam Vitals: Vital Signs Temp Pulse Pulse Resp BP BP Pulse Ox 01/07/17 11:35 98.6 F 58 L 16 136/72 94 L 01/07/17 07:53 98.5 F 61 16 119/58 96 01/07/17 03:55 97.1 F L 63 17 135/62 93 L 01/07/17 03:35 55 L 16 01/07/17 00:15 97.5 F L 67 16 139/62 95 01/07/17 00:00 95 16 01/06/17 21:40 97.7 F 76 17 170/94 93 L 01/06/17 21:33 97.6 F 66 16 175/98 95 01/06/17 20:40 74 18 174/82 95 01/06/17 20:02 75 16 168/88 95 01/06/17 19:20 98.0 F 77 16 156/91 96 01/06/17 18:40 98.3 F 80 18 149/77 93 L 01/06/17 17:17 98 F 98 20 143/76 94 L Intake and Output 01/06/17 01/07/17 01/07/17 22:59 06:59 14:59 Intake Total 582.784 298 Output Total 1100 Balance -517.216 298 Intake: IV 180 0.9 180 Intake, IV Titration 162.784 Amount Heparin Sodium,Porcine/ 162.784 D5w Pmx 25,000 unit In Dextrose/Water 1 500ml. bag @ 12 UNITS/KG/HR 17. 63 mls/hr IV .Q24H [facility] Rx #:[id number] Oral 240 298 Output: Urine 1100 Other: Voiding Method Toilet # Voids 1 2 Weight 76.6 kg 76.6 kg - Constitutional General appearance: average body habitus, no cooperative, disheveled, no mild distress, no morbidly obese, no acute distress, no obese, no severe distress, no thin - EENT Eyes: abnormal pupil, no anicteric sclerae, no disc margins sharp, no edentulous , no EOMI, no PERRLA, no fundus normal, no photophobia, no dentition normal, no poor dentition, no ptosis, no scleral icterus, normal appearance ENT: hard of hearing, no hearing grossly normal, no NA/AT, normal oropharynx, no other, no pharyngeal erythema, no thrush, no tonsillar exudates, tonsillar swelling Ears: bilateral: normal - Neck Neck: no lymphadenopathy, normal ROM, no other, no rigidity, no stridor, no thyromegaly Carotids: bilateral: upstroke normal Thyroid: bilateral: normal size - Respiratory Respiratory: bilateral: CTA, diminished - Cardiovascular Rhythm: regular Heart sounds: normal: S1, S2 Abnormal Heart Sounds: S3 Gallop - Gastrointestinal General gastrointestinal: no absent bowel sounds, decreased bowel sounds, no distended, no hepatomegaly, no hyperactive bowel sounds, no normal bowel sounds , no organomegaly, no rigid, no scaphoid, soft, no splenomegaly, no tenderness, no umbilical hernia, no ventral hernia - Integumentary Integumentary: no calor, no cellulitis, no cyanotic, no decreased turgor, no flushed, no jaundiced, normal, no normal turgor, pale, rash, no ulcer - Neurologic Neurologic: CNII-XII intact - Musculoskeletal Musculoskeletal: gait normal, generalized weakness, strength equal bilaterally - Psychiatric Psychiatric: A&O x's 3, appropriate affect Results CBC & Chem 7: 01/06/17 17:44 01/06/17 17:44 Labs: Abnormal Lab Results - Last 24 Hours (Table) 01/06/17 01/06/17 01/06/17 Range/Units 17:44 17:44 17:44 Lymphocytes # 0.6 L (1.0-4.8) k/uL APTT (22.0-30.0) sec D-Dimer 0.61 H (<0.60) mg/L FEU Carbon Dioxide 21 L (22-30) mmol/L Glucose 128 H (74-99) mg/dL HDL Cholesterol (40-60) mg/dL Urine Protein (Negative) Urine Blood (Negative) Urine Mucus (None) /hpf 01/06/17 01/07/17 01/07/17 Range/Units 18:45 03:45 05:33 Lymphocytes # (1.0-4.8) k/uL APTT 44.1 H (22.0-30.0) sec D-Dimer (<0.60) mg/L FEU Carbon Dioxide (22-30) mmol/L Glucose (74-99) mg/dL HDL Cholesterol 36 L (40-60) mg/dL Urine Protein 1+ H (Negative) Urine Blood Small H (Negative) Urine Mucus Rare H (None) /hpf 01/07/17 Range/Units 11:43 Lymphocytes # (1.0-4.8) k/uL APTT 42.5 H (22.0-30.0) sec D-Dimer (<0.60) mg/L FEU Carbon Dioxide (22-30) mmol/L Glucose (74-99) mg/dL HDL Cholesterol (40-60) mg/dL Urine Protein (Negative) Urine Blood (Negative) Urine Mucus (None) /hpf Thrombosis Risk Factor Assmnt - DVT/VTE Prophylaxis DVT/VTE Prophylaxis: Pharmacologic Prophylaxis ordered, Mechanical Prophylaxis ordered - Choose All That Apply Any of the Below Risk Factors Present?: Yes Each Factor Represents 1 point: Obesity (BMI >25) Other Risk Factors: Yes Each Risk Factor Represents 3 Points: Age 75 years or older Thrombosis Risk Factor Assessment Total Risk Factor Score: 4 Thrombosis Risk Factor Assessment Level: Moderate Risk Assessment and Plan Plan: 1 new onset of angina and unstable angina: Patient will be continue on nitro and heparin consult cardiology CK with troponin 3 will be done and patient most likely need to go for heart catheter for better diagnostic method and possible need for further management with angioplasty there is blockage. 2 severe dyspnea and shortness of breath: Most likely new finding as sign and symptom of unstable angina with the increased pressure in the right side can increase patient shortness of breath knowing his CTA and chest x-ray failed to show any fluid overload at the time or any sign and symptom of congestive heart failure per se. 3 history of CVA: No change in no residual currently. 4 hyperlipidemia: Patient has been on Zocor 20 mg daily. 5 neuropathy: Has been on gabapentin 300 mg 3 times a day. 6 BPH: No sign of urinary retention but patient is on Flomax 0.4 mg daily. 7 Neck pain and severe arthritis: Has been on physical therapy for the last few weeks. 8 hyperglycemia: On diet control Accu-Chek with sliding scales will be done. 9 GI prophylaxis: Patient will be on Pepcid 20 mg daily. 10 DVT prophylaxis: Patient will be on heparin continue knee-high MARISELA hose and Venodyne boots. CODE STATUS: Full code. Expectation from this admission: Patient be in the hospital at least for 2 nights.
[2017-01-07] MEDS ORDERED: HEPARIN SODIUM,PORCINE 5,000 UNIT/ML 1 ML VIAL IV STA (13:57)
[2017-01-07] MEDS ORDERED: ASPIRIN 325 MG TAB PO STA (14:36)
[2017-01-07] MEDS ORDERED: SODIUM CHLORIDE 0.9% 1,000 ML in EMPTY BAG 1 BAG IV ONE (14:36)
[2017-01-07] MEDS ORDERED: ALPRAZolam 0.5 MG TAB PO PRN (14:36)
[2017-01-07] MEDS ORDERED: ALPRAZolam 0.25 MG TAB PO PRN (14:36)
[2017-01-07] MEDS ORDERED: ATORVASTATIN 80 MG TAB PO STA (14:36)
[2017-01-07] MEDS ORDERED: NITROGLYCERIN SL TABS 0.4 MG TAB SUBLINGUAL PRN (14:36)
[2017-01-07] MEDS ORDERED: ASPIRIN 81 MG CHEW PO SCH (21:00)
[2017-01-07] MEDS: HEPARIN SODIUM,PORCINE/D5W PMX 25,000 UNIT in DEXTROSE/WATER 1 500ML.BAG IV SCH (21:45)
[2017-01-08] MEDS: LOSARTAN 50 MG TAB PO SCH (06:09)
[2017-01-08] MEDS: GABAPENTIN 300 MG CAP PO SCH ×2 (06:09→15:34)
[2017-01-08] MEDS: amLODIPine 5 MG TAB PO SCH (06:09)
[2017-01-08] MEDS: ATORVASTATIN 10 MG TAB PO SCH ×2 (06:09→08:11)
[2017-01-08] MEDS: TAMSULOSIN 0.4 MG CAP.ER.24H PO SCH (06:09)
[2017-01-08 06:43] LABS: Basophils # (A) 0.1 k/uL (0-0.2); Basophils % (A) 1 %; CH 30.1; CHCM 34.3; Eosinophils # (A) 0.3 k/uL (0-0.7); Eosinophils % (A) 4 %; HCT 42.9 % (39.0-53.0); HDW 2.63; HGB 14.9 gm/dL (13.0-17.5); Luc # (Auto) 0.17; Luc % (Auto) 2; Lymphocytes # (A) 1.7 k/uL (1.0-4.8); Lymphocytes % (A) 22 %; MCH 30.7 pg (25.0-35.0); MCHC 34.8 g/dL (31.0-37.0); MCV 88.3 fL (80.0-100.0); Mean Platelet Volume 7.4; Monocytes # (A) 0.6 k/uL (0-1.0); Monocytes % (A) 7 %; Neutrophils # (A) 4.9 k/uL (1.3-7.7); Neutrophils % (A) 64 %; RBC 4.86 m/uL (4.30-5.90); RDW 13.8 % (11.5-15.5); WBC 7.6 k/uL (3.8-10.6); WBC (Perox) 7.16
[2017-01-08 07:03] LABS: ALT 35 U/L (21-72); AST 26 U/L (17-59); Alkaline Phosphatase 70 U/L (38-126); Anion Gap 13 mmol/L; Blood Urea Nitrogen 20 mg/dL (9-20); Carbon Dioxide 19 mmol/L (22-30); Chloride 106 mmol/L (98-107); Glucose 93 mg/dL (74-99); Non-African American GFR(MDRD) >60 (>60 ml/min/1.73 sqM); Potassium 4.4 mmol/L (3.5-5.1); Sodium 138 mmol/L (137-145); Total Bilirubin 0.6 mg/dL (0.2-1.3); Total Protein 6.5 g/dL (6.3-8.2)
[2017-01-08 08:10] VITALS: RESP 16; TEMP 96.5
[2017-01-08] MEDS: LACTOBACILLUS ACIDOPH & BULGAR 1 EACH PACKET PO SCH (08:14)
[2017-01-08] MEDS ORDERED: IV FLUID CONTINUATION 650 ML IV ONE (10:14)
--- NOTE | 2017-01-08 10:25 | P.PN ---
Subjective 86-year-old male one of Dr. Arce's patient who is seen Dr[facility] on [facility] basis who apparently had a stress test back in August was slightly bit abnormal but decided not to do any further intervention at the time. Patient lives at [facility] and has been doing good, used to walk [place] [email or web address] [place] the time until the last few days when walking or climbing steps become extremely major effort causing him to have shortness of breath and increased neck and arm pain with cold sweat and palpitation. Symptoms Happening repeatedly till yesterday when patient was at physical therapy and was more symptomatic, physical therapist refused to do his session at the time and ask him to call his primary or his hobbing machine operator in to be seen. Patient was seen by his family and decided to come to the emergency department at [facility] with the above problem. From his complaint and this onset looks like patient is having new onset of angina and unstable angina along with worsening dyspnea not been explained through his chest x-ray and CTA. Full testing of the ER done including blood work with moderately elevated d- dimer CTA was performed did not show any embolism his EKG showed atypical finding at the time troponin was normal but BNP was elevated. Patient was started on heparin drip nitro consult cardiology and admit patient to the hospital. Review his last stress test and discussed this with cardiology patient most likely need to go for heart cath especially with abnormal stress test from few weeks ago. 01/08: Patient was seen and evaluated today. Patient denies any chest pain or increased shortness of breath. Patient has had troponins 3 that were all negative. EKG shows normal sinus rhythm with no acute changes. Echocardiogram reveals ejection fraction between 55 and 60%, mild mitral regurgitation, mild tricuspid regurgitation. CTA showed no evidence for pulmonary embolism. Blood pressure 172/76 with a heart rate of 59. The patient is scheduled for a cardiac catheterization this morning with possible angioplasty. Objective - Vital Signs Vital signs: Vital Signs Temp 96.5 F L 01/08/17 08:00 Pulse 59 L 01/08/17 08:00 Resp 16 01/08/17 08:00 BP 172/76 01/08/17 08:00 Pulse Ox 93 L 01/08/17 09:35 Intake & Output 01/07/17 01/08/17 01/08/17 18:59 06:59 18:59 Intake Total 1154.674 344.162 231.965 Balance 1154.674 344.162 231.965 Weight 76.2 kg Intake: IV 348 160 0.9 160 160 Heparin Sodium,Porcine/ 188 D5w Pmx 25,000 unit In Dextrose/Water 1 500ml. bag @ 12 UNITS/KG/HR 17. 63 mls/hr IV .Q24H [facility] Rx #:[id number] Intake, IV Titration 168.674 184.162 231.965 Amount Heparin Sodium,Porcine/ 168.674 184.162 231.965 D5w Pmx 25,000 unit In Dextrose/Water 1 500ml. bag @ 12 UNITS/KG/HR 17. 63 mls/hr IV .Q24H [facility] Rx #:[id number] Oral 638 - Exam - Constitutional General appearance: average body habitus, no cooperative, disheveled, no mild distress, no morbidly obese, no acute distress, no obese, no severe distress, no thin - EENT Eyes: abnormal pupil, no anicteric sclerae, no disc margins sharp, no edentulous , no EOMI, no PERRLA, no fundus normal, no photophobia, no dentition normal, no poor dentition, no ptosis, no scleral icterus, normal appearance ENT: hard of hearing, no hearing grossly normal, no NA/AT, normal oropharynx, no other, no pharyngeal erythema, no thrush, no tonsillar exudates, tonsillar swelling Ears: bilateral: normal - Neck Neck: no lymphadenopathy, normal ROM, no other, no rigidity, no stridor, no thyromegaly Carotids: bilateral: upstroke normal Thyroid: bilateral: normal size - Respiratory Respiratory: bilateral: CTA, diminished - Cardiovascular Rhythm: regular Heart sounds: normal: S1, S2 Abnormal Heart Sounds: S3 Gallop - Gastrointestinal General gastrointestinal: no absent bowel sounds, decreased bowel sounds, no distended, no hepatomegaly, no hyperactive bowel sounds, no normal bowel sounds , no organomegaly, no rigid, no scaphoid, soft, no splenomegaly, no tenderness, no umbilical hernia, no ventral hernia - Integumentary Integumentary: no calor, no cellulitis, no cyanotic, no decreased turgor, no flushed, no jaundiced, normal, no normal turgor, pale, rash, no ulcer - Neurologic Neurologic: CNII-XII intact - Musculoskeletal Musculoskeletal: gait normal, generalized weakness, strength equal bilaterally - Psychiatric Psychiatric: A&O x's 3, appropriate affect - Labs CBC & Chem 7: 01/08/17 06:17 01/08/17 06:17 Labs: Abnormal Lab Results - Last 24 Hours (Table) 01/07/17 01/07/17 01/08/17 Range/Units 11:43 20:28 06: APTT 42.5 H 67.9 H (22.0-30.0) sec Carbon Dioxide 19 L (22-30) mmol/L 01/08/17 Range/Units 06: APTT 78.9 H (22.0-30.0) sec Carbon Dioxide (22-30) mmol/L Assessment and Plan Plan: 1 New onset of angina and unstable angina: Patient will continue on nitro and heparin, consult with cardiology appreciated, CK with troponin 3 were negative , he is scheduled for a cardiac catheterization with possible angioplasty if there is a blockage 2 Severe dyspnea and shortness of breath: Most likely new finding of unstable angina with the increased pressure in the right side can increase patient shortness of breath knowing his CTA and chest x-ray failed to show any fluid overload at the time or any sign and symptom of congestive heart failure. 3 History of CVA: No change in residual currently. 4 Hyperlipidemia: Patient has been on Zocor 20 mg daily. 5 Neuropathy: Has been on gabapentin 300 mg 3 times a day. 6 BPH: No sign of urinary retention but patient is on Flomax 0.4 mg daily. 7 Neck pain and severe arthritis: Has been on physical therapy for the last few weeks. 8 Hyperglycemia: On diet control Accu-Chek with sliding scales will be done. 9 GI prophylaxis: Patient will be on Pepcid 20 mg daily. 10 DVT prophylaxis: Patient is on heparin continue knee-high MARISELA hose and Venodyne boots. CODE STATUS: Full code. The above impression and plan of care have been discussed and directed by signing physician. Nina Barnhart nurse practitioner acting as scribe for signing physician.
[2017-01-08] MEDS ORDERED: MIDAZOLAM 2 MG/2 ML VIAL ONE (10:27)
[2017-01-08] MEDS ORDERED: fentaNYL (PF) 50 MCG/ML 2 ML AMP ONE (10:28)
[2017-01-08] MEDS ORDERED: fentaNYL (PF) 50 MCG/ML 2 ML AMP IV ONE (10:39)
[2017-01-08] MEDS ORDERED: LIDOCAINE 2% INJ 20 MG/ML SQ ONE ×2 (10:41)
[2017-01-08] MEDS ORDERED: MIDAZOLAM 2 MG/2 ML VIAL IV ONE (10:43)
[2017-01-08] MEDS ORDERED: IOHEXOL 350 MG/ML 125ML BOTTLE INJ ONE (10:59)
[2017-01-08] MEDS ORDERED: RX INFO: IV CONTRAST WAS GIVEN 1 EACH MISC MISCELLANE PRN (11:08)
[2017-01-08] MEDS ORDERED: SODIUM CHLORIDE 0.9% 1,000 ML IV SCH (11:15)
--- NOTE | 2017-01-08 11:23 | P.PCN ---
Date of Procedure: 01/08/17 Preoperative Diagnosis: Exertional shortness of breath Postoperative Diagnosis: Normal coronary arteries with mild calcification. Tortuous aorta Procedure(s) Performed: Left heart catheterization with left ventriculography Implants: Indications for Procedure: Operative Findings: Description of Procedure: HISTORY: This is a 86-year-old gentleman with history of hypertension hypercholesterolemia who was admitted to the hospital with complaints of onset of exertional shortness of breath. Patient had a computed tomography scan of the chest which was negative for pulmonary emboli. X-ray did not reveal any significant changes. Cardiac enzymes were negative and EKGs did not reveal any acute changes. Because of unexplained shortness of breath, patient is advised to have a cardiac catheterization for definitive diagnosis. Patient had a nuclear stress test in August which was negative for ischemia. CONSENT:I have discussed the risks, benefits and alternative therapies for the above-mentioned procedure and for both sedation/analgesia as well as necessary blood product administration, if indicated, as they pertain to this patient. The patient has indicated understanding and acceptance of the risks and procedures discussed. CONSCIOUS SEDATION: Patient was given conscious sedation with fentanyl 25 g and 0.5mg of Versed. The duration is 20 minutes PROCEDURE: Patient was brought to the lab in a fasting state. Patient was given some IV sedation. The right groin is infiltrated with lidocaine and right femoral artery was entered using Seldinger technique. A 6-Luxembourgish catheter was left in place and selective coronary arteriography and left ventriculography was performed. Patient tolerated the procedure well. Femoral angiogram was performed and Angio-Seal was applied for hemostasis. No immediate complications were noted and patient was transferred to [facility] in a stable condition HEMODYNAMICS: . The aortic pressure is about 120/70. Left ankle end-diastolic pressure is 12. There was no gradient across the aortic valve. SELECTIVE CORONARY ARTERIOGRAPHY: LEFT MAIN: Normal length and patent. The left main coronary artery could not be selectively engaged but subselect injections were performed. The difficulty of days because of extreme tortuosity of the abdominal aorta. THE LEFT ANTERIOR DESCENDING CORONARY ARTERY: This is a good caliber vessel with mild calcification and plaque in the proximal and midportion area and there appears to be about 30-40% lesion in the mid LAD. THE LEFT CIRCUMFLEX AND IS CORONARY ARTERY: This is a good caliber vessel giving rise to good-sized OM branch. The circumflex and its branches are free of any significant occlusive disease. THE INTERMEDIATE CORONARY ARTERY: This is a moderate caliber vessel free of any occlusive disease. THE RIGHT CORONARY ARTERY: This is a good caliber vessel giving rise to good-sized PDA and PLV. The right coronary artery and branches are free of occlusive disease LEFT VENTRICULOGRAPHY: . This revealed normal-sized cardiac silhouette with good systolic function without any segmental wall motion defects. FINAL IMPRESSION: Mild coronary artery disease with about 30% to 40% lesion in mid LAD and some calcification. The rest of the vessels are free of occlusive disease. PLAN: Maximum medical therapy and risk factor modification. May consider pulmonary function test PROGNOSIS: Fair
--- NOTE | 2017-01-08 11:56 | P.PN ---
Subjective Principal diagnosis: Exertional shortness of breath This is a very pleasant 86-year-old gentleman who follows with Dr. Dhillon in the office. He has a known history of hypertension, hyperlipidemia, he is extremely physically active, exercises daily. For the past 4 or 5 days, he states that with minimal exertion he has been noticing that he gets extremely short of breath. He also feels a pressure sensation up near his throat. Patient also intermittently gets a discomfort and numbness which starts in the left shoulder area and radiates down the arm. He has been attributing this to a neck problem. Patient states that going upstairs he becomes short of breath, he sits down and rests then resumes activity and even walking a short distance following that again becomes very short of breath and tired. He denies any history of any lung problems, he is a nonsmoker. Patient states that he has had a stress test with Dr. Dhillon within the past one year. No prior documented coronary artery disease. Troponins have been negative 3. Potassium 4.5, BUN 17, creatinine 1.0, BNP level 446. CBC normal. Chest x-ray does not reveal any acute cardiopulmonary process. CTA of the chest was performed which did not reveal any evidence of a pulmonary embolism. Initial EKG shows a normal sinus rhythm with no acute changes. Subsequent EKG performed this morning shows a normal sinus rhythm with no acute changes. At the time of my examination this morning patient is currently symptom-free, however he has not been up out of bed yet either. Blood pressure 120/60 with a heart rate in the 60s. 6% on room air. 01/08/2017. Patient seen and examined this morning, denies any shortness of breath or chest discomfort. He was complaining of some pain in his right shoulder this morning. He is scheduled today to undergo cardiac catheterization by Dr. Dhillon. The risks and benefits of that explained to the patient in detail Objective - Vital Signs Vital signs: Vital Signs Temp 96.5 F L 01/08/17 08:00 Pulse 68 01/08/17 11:46 Resp 16 01/08/17 11:46 BP 149/79 01/08/17 11:46 Pulse Ox 96 01/08/17 11:17 Intake & Output 01/07/17 01/08/17 01/08/17 18:59 06:59 18:59 Intake Total 1154.674 344.162 381.965 Balance 1154.674 344.162 381.965 Weight 76.2 kg Intake: IV 348 160 150 0.9 160 160 Heparin Sodium,Porcine/ 188 D5w Pmx 25,000 unit In Dextrose/Water 1 500ml. bag @ 12 UNITS/KG/HR 17. 63 mls/hr IV .Q24H [facility] Rx #:[id number] Intake, IV Titration 168.674 184.162 231.965 Amount Heparin Sodium,Porcine/ 168.674 184.162 231.965 D5w Pmx 25,000 unit In Dextrose/Water 1 500ml. bag @ 12 UNITS/KG/HR 17. 63 mls/hr IV .Q24H [facility] Rx #:[id number] Oral 638 - Exam PHYSICAL EXAMINATION: HEENT: Head is atraumatic, normocephalic. Pupils equal, round. Neck is supple. There is no elevated jugular venous pressure. HEART EXAMINATION: Heart S1 and S2 systolic murmur is heard CHEST EXAMINATION: Lungs are clear to auscultation and precussion. No chest wall tenderness is noted on palpation or with deep breathing. ABDOMEN: Soft, nontender. Bowel sounds are heard. No organomegaly noted. EXTREMITIES: 2+ peripheral pulses with no evidence of peripheral edema and no calf tenderness noted. NEUROLOGIC patient is awake, alert and oriented -3. . - Labs CBC & Chem 7: 01/08/17 06:17 01/08/17 06:17 Labs: Abnormal Lab Results - Last 24 Hours (Table) 01/07/17 01/07/17 01/08/17 Range/Units 11:43 20:28 06:17 APTT 42.5 H 67.9 H (22.0-30.0) sec Carbon Dioxide 19 L (22-30) mmol/L 01/08/17 Range/Units 06:17 APTT 78.9 H (22.0-30.0) sec Carbon Dioxide (22-30) mmol/L Assessment and Plan Plan: Assessment and plan #1 exertional dyspnea suggestive of a possible angina. Troponins negative 3. EKG shows normal sinus rhythm with no acute changes. #2 hypertension #3 hyperlipidemia Plan Echocardiogram with Doppler study was performed which revealed an ejection fraction of 55-6 today to undergo cardiac catheterization by Dr. Dhillon. Further recommendations will be based on those findings and patient's clinical course. DNP note has been reviewed, I agree with a documented findings and plan of care. Patient was seen and examined.
[2017-01-08 13:19] VITALS: BP 148/73; PULSE 64
--- NOTE | 2017-01-08 20:10 | P.PN ---
Subjective Principal diagnosis: TIA Patient's an 86-year-old male a followed by neurology for possible TIA. Patient is also being followed investigate the patient's upper extremity numbness and tingling distally into the hands. Patient has no history of hypertension hyperlipidemia and was otherwise very physically active. For the last several days, the patient would experience shortness of breath, pressure sensation into the chest and throat and would also intermittently get discomfort as well as numbness and tingling in the left shoulder that radiated distally into the left upper extremity. Patient has a known cervical history and patient was attributing her current symptoms as secondary etiology. Patient has significant dyspnea on exertion. Patient did have a history of a stress test in the past year. Patient has no prior coronary artery disease, troponins 3, potassium 4.5, CBC were normal. Chest x-ray, CT of the chest were negative. Initial EKG showed normal sinus with no acute changes. At time of the exam the patient was supine in bed resting comfortably post cardiac catheterization with his daughter at the bedside. Patient was alert and oriented 3. After speaking with the patient he initially denied any TIA-like symptoms. He routinely returned to his neck and left upper extremity numbness and tingling and his associated known cervical history. Patient also began stating that he also has pain in his right shoulder today. Patient believes he has significant cervical disc disease at C5/6, C6/7 and C7/T1. Objective - Vital Signs Vital signs: Vital Signs Temp 96.5 F L 01/08/17 08:00 Pulse 64 01/08/17 13:02 Resp 16 01/08/17 12:32 BP 148/73 01/08/17 13:02 Pulse Ox 96 01/08/17 11:17 Intake & Output 01/08/17 01/08/17 01/09/17 06:59 18:59 06:59 Intake Total 344.162 756.965 Output Total 950 Balance 344.162 -193.035 Weight 76.2 kg Intake: IV 160 525 0.9 160 Sodium Chloride 0.9% 1, 375 000 ml @ 75 mls/hr IV . [id number] [facility] Rx#:[id number] Intake, IV Titration 184.162 231.965 Amount Heparin Sodium,Porcine/ 184.162 231.965 D5w Pmx 25,000 unit In Dextrose/Water 1 500ml. bag @ 12 UNITS/KG/HR 17. 63 mls/hr IV .Q24H [facility] Rx #:[id number] Output: Urine 950 - Exam Constitutional: AOx3, cooperative HEENT: NC/AT, no facial asymmetry is seen. 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 Neurological: CN II-XII in tact, patient was AOx3, speech and language are normal, no unilateralizing weakness, no seizure activity note on physical exam. Sensation was normal. Integementary: no rash, no erythema, Right lower extremity and groin cardiac catheter site Psychiatric: mood and affect appropriate - Constitutional Constitutional Comment(s): Systems not noted in HPI previously or negative - Labs CBC & Chem 7: 01/08/17 06:17 01/08/17 06:17 Labs: Abnormal Lab Results - Last 24 Hours (Table) 01/07/17 01/08/17 01/08/17 Range/Units 20:28 06:17 06:17 APTT 67.9 H 78.9 H (22.0-30.0) sec Carbon Dioxide 19 L (22-30) mmol/L Assessment and Plan (1) Degenerative disc disease, cervical Status: Acute (2) SOB (shortness of breath) on exertion Status: Acute Plan: On physical exam, the patient's symptoms appear more consistent with cervical DDD and possible cervical radiculopathy. Patient does state he has a prior diagnosis of cervical DDD with bilateral upper extremity radiating pain. Patient's EEG returned within normal limits. At this time it does appear that the he could have experienced a TIA. He did have what appeared to be several episodes of significant dyspnea with exertion. Symptoms are also more likely related to his unstable angina. CT of the brain noted no acute abnormalities and noted more probable presence of chronic small vessel ischemic disease. Discussed with the patient that his cervical complaints could be worked up further outpatient after discharge. Patient will maintain 81 mg aspirin, statins per existing regimen post discharge. Status: Patient can be cleared from a neurological standpoint for discharge.
--- NOTE | 2017-01-08 21:04 | CONS ---
DATE OF CONSULTATION: 01/07/2017 CHIEF COMPLAINT: Upper extremity numbness. HISTORY OF PRESENT ILLNESS: Mr. Veronica is a pleasant 86-year-old male who is being evaluated by the neurology service on 01/07/17 per the request of Dr. Blake for upper extremity numbness. The patient was brought into [facility] Emergency Room with complaints of new onset of shortness of breath. The patient is quite active for his age and walks far distances with no difficulties. Yesterday, he became quite short of breath with even shorter distances than he would normally walk with no difficulties. When he arrived at home, he took the stairs and he again felt short-winded. He did not have any chest pain. A CT scan angiogram of the chest was done when he arrived in the emergency room which showed no evidence of any pulmonary embolism. The patient did complain of numbness and tingling in his arms and there were concerns about neurologic etiologies for this. The patient reports that he has a long-standing history of neck pain with occasional numbness and tingling in his arms, and this is unchanged at this time. A CT scan of the brain was done in the emergency room which showed no acute abnormalities. There was evidence of generalized atrophy and small vessel ischemic changes. His cardiac enzymes, fasting lipid panel, urinalysis, comprehensive metabolic profile and CBC were all reviewed and were normal. Cardiology had been consulted, and he is scheduled for a heart catheterization in the morning. At the time of my evaluation, he is sitting up in his bed and appears to be in no acute distress. He denies any numbness or tingling at the time of my evaluation. He did not have any lateralizing weakness during this episode. He denies any headache or dizziness at this time. PAST MEDICAL HISTORY: 1. Hypertension. 2. Dyslipidemia. 3. History of transient ischemic attack. 4. History of cholecystectomy. 5. History of hernia repair. SOCIAL HISTORY: He denies any tobacco or drug use. He occasionally drinks alcohol. FAMILY HISTORY: Non-contributory. Home medications reviewed in the chart. ALLERGIES: SULFA DRUGS. REVIEW OF SYSTEMS: As mentioned above and otherwise negative. PHYSICAL EXAM: Vitals signs show a temperature of 97.8, pulse 58, respiration 16, blood pressure 113/60. GENERAL APPEARANCE: The patient is a well-developed elderly male who appears to be in no acute distress. HEENT: Normocephalic, atraumatic. No facial asymmetry is seen. Extraocular muscles are intact. Neck is supple with no masses felt. CARDIOVASCULAR: Bradycardic rate with a normal rhythm. ABDOMEN: Non-tender. Non-distended. Extremities showed no edema or clubbing. NEUROLOGICAL EXAM: The patient is alert, aware and oriented x3. Speech and language are normal. Strength is full in all 4 extremities. Sensory exam was normal to light touch in all 4 extremities. No tremors or seizure-like activity is seen. No facial asymmetry is noticed on cranial nerve testing. IMPRESSION: 1. Recurrent upper extremity numbness and tingling. 2. History of chronic cervicalgia. 3. New-onset shortness of breath. 4. Small vessel ischemic disease. 5. History of previous transient ischemic attack. RECOMMENDATION: The patient's upper extremity numbness and tingling is not felt to be due to any ischemic etiology. His symptoms were bilateral and most likely related to his cervical spine etiologies. The patient does report a chronic history of neck pain with recurrent upper extremity numbness. His symptoms have resolved. The patient does have a previous history of transient ischemic attack , according to the chart, and is already on aspirin for antiplatelet therapy. As for his shortness of breath, Cardiology has been consulted and he is scheduled for a heart catheterization tomorrow morning. An EEG has been ordered. Continue the rest of your current workup and management. I will continue to follow with you. Further recommendations to follow. Thank you for allowing me to participate in the care of your patient. If you have any questions, please feel free to contact me. CHRISTIAN
--- NOTE | 2017-01-09 04:42 | EEG ---
DATE OF SERVICE: 01/08/2017 REASON FOR TESTING: Transient ischemic attack. DESCRIPTION OF THE PROCEDURE: This EEG was performed using a 21-channel digital electroencephalograph, following international 10-20 system. DESCRIPTION OF THE RECORDING: From the beginning of the tracing, and with the patient's eyes closed, the background rhythm was mostly consisting of 9 Hz alpha frequency in the posterior occipital leads. No obvious asymmetry is seen. Frequent movement and muscle artifacts are seen. Photic stimulation was performed with a good driving response seen. No pathological waves were elicited. Rare lead artifacts are seen. Hyperventilation was not performed. The patient remains awake throughout the tracing. No epileptiform discharges were seen. His EKG lead showed a regular rate and rhythm. INTERPRETATION: This awake EEG can be considered within normal limits. There was no asymmetry seen. No epileptiform discharges were noticed. The absence of epileptiform discharges does not rule out the diagnosis of epilepsy, therefore clinical correlation is recommended. LIILAD
== END 2017-01-08 17:11 | disposition home or self-care (01) | DRG 287 ==
LOC: EC 17:14 → 6SEL 21:15
PROVIDERS: ADMIT Internal Medicine Geriatric Medicine; ATTEND Internal Medicine Geriatric Medicine
PROC: B2111ZZ Fluoroscopy of Multiple Coronary Arteries using Low Osmolar Contrast (ICD-10-PCS; 2017-01-08)
PROC: B2151ZZ Fluoroscopy of Left Heart using Low Osmolar Contrast (ICD-10-PCS; 2017-01-08)
PROC: 4A023N7 Measurement of Cardiac Sampling and Pressure, Left Heart, Percutaneous Approach (ICD-10-PCS; principal; 2017-01-08 10:14)
DX: I25.110 Atherosclerotic heart disease of native coronary artery with unstable angina pectoris (principal); G62.9 Polyneuropathy, unspecified; R00.1 Bradycardia, unspecified; I10 Essential (primary) hypertension; E78.5 Hyperlipidemia, unspecified; R73.9 Hyperglycemia, unspecified; I67.9 Cerebrovascular disease, unspecified; I34.0 Nonrheumatic mitral (valve) insufficiency; R01.1 Cardiac murmur, unspecified; I44.0 Atrioventricular block, first degree; R94.39 Abnormal result of other cardiovascular function study; E78.00 Pure hypercholesterolemia, unspecified; I36.1 Nonrheumatic tricuspid (valve) insufficiency; J30.9 Allergic rhinitis, unspecified; M50.122 Cervical disc disorder at C5-C6 level with radiculopathy; R29.701 NIHSS score 1; G89.29 Other chronic pain; R53.1 Weakness; N40.0 Benign prostatic hyperplasia without lower urinary tract symptoms; Z79.899 Other long term (current) drug therapy; Z90.49 Acquired absence of other specified parts of digestive tract; Z86.73 Personal history of transient ischemic attack (TIA), and cerebral infarction without residual deficits; Z88.2 Allergy status to sulfonamides; Z86.59 Personal history of other mental and behavioral disorders; Z79.82 Long term (current) use of aspirin
CPT/HCPCS: 36415; 70450; 71020; 71275; 80053; 80061; 81001; 82550; 82553; 83735; 83880; 84484; 85025; 85379; 85610; 85730; 93005; 93306; 93458; 94760; 95816; 99285

== ENCOUNTER 2017-01-10 14:22 | Emergency (ER) | payer MEDICARE, BC ==
[2017-01-10 14:29] VITALS: RESP 18; TEMP 97.9
--- NOTE | 2017-01-10 15:56 | ED ---
General Adult HPI - General Chief complaint: Skin/Abscess/Foreign Body Stated complaint: post heart cath/poss blood clot Time Seen by Provider: 01/10/17 15:44 Source: patient, RN notes reviewed Mode of arrival: wheelchair Limitations: no limitations - History of Present Illness Initial comments: Patient 86-year-old male who presents emergency room today with a chief complaint of some swelling and pain locally to the right groin area. He does admit that he had a heart catheterization performed 2 days ago. He states he noticed some mild tenderness to this area yesterday. He states today he feels like it's more swollen and he feels this when he is trying to ambulate. Patient denies any other complaints or associated symptoms. Patient denies any recent fever, chills, shortness of breath, chest pain, back pain, abdominal pain , nausea or vomiting, numbness or tingling, dysuria or hematuria, constipation or diarrhea, headaches or visual changes, or any other complaints. - Related Data Home Medications Medication Instructions Recorded Confirmed Losartan [Cozaar] 50 mg PO DAILY 10/29/14 01/10/17 amLODIPine [Norvasc] 5 mg PO DAILY 10/29/14 01/10/17 Acetaminophen [Tylenol] 325 mg PO BID PRN 01/06/17 01/10/17 Gabapentin [Neurontin] 300 mg PO BID 01/06/17 01/10/17 Ibuprofen [Motrin] 200 mg PO DAILY PRN 01/06/17 01/10/17 L.acidoph,Paracasei, B.lactis 1 cap PO DAILY 01/06/17 01/10/17 [Probiotic] Simvastatin [Zocor] 20 mg PO DAILY 01/06/17 01/10/17 Tamsulosin HCl [Flomax] 0.4 mg PO DAILY 01/06/17 01/10/17 Aspirin 325 mg PO HS 01/10/17 01/10/17 Allergies Allergy/AdvReac Type Severity Reaction Status Date / Time Sulfa (Sulfonamide Allergy Unknown Verified 01/10/17 15:54 Antibiotics) Review of Systems ROS Statement: Those systems with pertinent positive or pertinent negative responses have been documented in the HPI. ROS Other: All systems not noted in ROS Statement are negative. Past Medical History Past Medical History: CVA/TIA, Hypertension History of Any Multi-Drug Resistant Organisms: None Reported Past Surgical History: Cholecystectomy, Heart Catheterization, Hernia Repair Past Psychological History: No Psychological Hx Reported Smoking Status: Never smoker Past Alcohol Use History: Occasional Past Drug Use History: None Reported - Past Family History Father Family Medical History: No Reported History Mother Family Medical History: No Reported History General Exam - General Exam Comments Initial Comments: General: The patient is awake and alert, in no distress, and does not appear acutely ill. Eye: Pupils are equal, round and reactive to light, extra-ocular movements are intact. No nystagmus. There is normal conjunctiva bilaterally. No signs of icterus. Ears, nose, mouth and throat: There are moist mucous membranes and no oral lesions. Neck: The neck is supple, there is no tenderness or JVD. Cardiovascular: There is a regular rate and rhythm. No murmur, rub or gallop is appreciated. Respiratory: Lungs are clear to auscultation, respirations are non-labored, breath sounds are equal. No wheezes, stridor, rales, or rhonchi. Gastrointestinal: Soft, non-distended, non-tender abdomen without masses or organomegaly noted. There is no rebound or guarding present. No CVA tenderness. Bowel sounds are unremarkable. Musculoskeletal: Normal ROM, no tenderness. Strength 5/5. Sensation intact. Pulses equal bilaterally 2+. Neurological: A&O x 3. CN II-XII intact, There are no obvious motor or sensory deficits. Coordination appears grossly intact. Speech is normal. Skin: Skin is warm and dry and no rashes or lesions are noted. Psychiatric: Cooperative, appropriate mood & affect, normal judgment. : Patient does have some small bruising located to the right groin. Locally tender to the medial aspect of the right upper thigh. Limitations: no limitations Course Vital Signs 01/10/17 14:25 Temperature 97.9 F Pulse Rate 83 Respiratory 18 Rate Blood Pressure 140/68 O2 Sat by Pulse 97 Oximetry Medical Decision Making - Medical Decision Making Case discussed in detail with attending physician Dr. Churchill. Patient's ultrasound shows no evidence of pseudoaneurysm. No evidence of DVT. Results were discussed with the patient. 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 Eyes return if any symptoms increase or worsen or for any other concerns. Disposition Clinical Impression: Post procedure discomfort, Contusion Disposition: HOME SELF-CARE Condition: Good Instructions: Contusion in Adults (ED) Additional Instructions: Please follow-up family doctor and filtration plant mechanic over the next 2 days. Please return to emergency room if any symptoms increase or worsen or for any other concerns. Referrals: Liz Arce MD [Primary Care Provider] - 1-2 days Time of Disposition: 16:43
--- NOTE | 2017-01-10 16:31 | US ---
EXAMINATION TYPE: US venous doppler duplex LE RT DATE OF EXAM: 01/10/2017 4:14 PM COMPARISON: NONE CLINICAL HISTORY: Pain. Right leg pain s/p heart cath SIDE PERFORMED: Right TECHNIQUE: The lower extremity deep venous system is examined utilizing real time linear array sonog david with graded compression, doppler sonography and color-flow sonography. VESSELS IMAGED: External Iliac Vein (EIV) Common Femoral Vein Deep Femoral Vein Greater Saphenous Vein * Femoral Vein Popliteal Vein Small Saphenous Vein * Proximal Calf Veins (* superficial vessels) Right Leg: Negative for DVT Grayscale, color doppler, spectral doppler imaging performed of the deep veins of the right lower ex tremity. There is normal flow, compressibility, vascular waveforms in the right lower extremity. IMPRESSION: No ultrasound evidence for acute DVT in the right lower extremity.
--- NOTE | 2017-01-10 16:32 | US ---
EXAMINATION TYPE: US lower ext pseudo artery RT DATE OF EXAM: 01/10/2017 COMPARISON: NONE CLINICAL HISTORY: Pain. Right groin bruising and lump s/p heart cath EXAM PERFORMED: Grayscale and color Doppler duplex imaging performed of the groin, post cardiac angelo ter to assess for pseudoaneurysm. SIDE PERFORMED: Right Color and Waveform Doppler performed to assess for the presence of pseudoaneurysm; Is there ultrasound evidence of a pseudoaneurysm: No Is there evidence of AV shunting: No Is there a fluid collection present: No Normal appearing groin s/p heart cath No suspicious outpouching or swirling is identified to suggest pseudoaneurysm. No worrisome focal flu id collection is seen to suggest hematoma. IMPRESSION: No ultrasound evidence for pseudoaneurysm or other complication related to recent groin access for ca rdiac catheterization.
[2017-01-10 17:07] VITALS: BP 129/72; PULSE 70
== END 2017-01-10 17:07 | disposition home or self-care (01) ==
LOC: EC 14:22
DX: L76.82 Other postprocedural complications of skin and subcutaneous tissue (principal); S30.1XXA Contusion of abdominal wall, initial encounter; I10 Essential (primary) hypertension; Z79.82 Long term (current) use of aspirin; Z79.899 Other long term (current) drug therapy; Z88.2 Allergy status to sulfonamides; Z95.818 Presence of other cardiac implants and grafts; Z90.49 Acquired absence of other specified parts of digestive tract; Z98.890 Other specified postprocedural states; X58.XXXA Exposure to other specified factors, initial encounter
CPT/HCPCS: 93975; 99283

== ENCOUNTER → 2017-02-20 | Outpatient (CLI) | payer MEDICARE, BC ==
--- NOTE | 2017-02-20 08:50 | CT ---
EXAMINATION TYPE: CT chest wo con DATE OF EXAM: 02/20/2017 COMPARISON: NONE HISTORY: Shortness of breath CT DLP: 564.1 mGycm High-resolution noncontrast CT of the chest was performed with the patient in the prone and supine po sitions. Lung and mediastinal window settings are submitted. The lungs appear to be well-aerated. There is mild subpleural fibrosis seen at the lung bases right g reater than left. There is mild lower lobe bronchiectasis. I do not see evidence for groundglass infi ltrate or focal consolidation. No evidence for mass or nodule. No pleural effusion is identified. I do not see evidence for hilar or mediastinal mass or adenopathy. 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 Mild cardiomegaly with coronary artery calcifications. Calcified hilar and m ediastinal lymph nodes. IMPRESSION: 1. 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
== END | disposition home or self-care (01) ==
LOC: RADCTMAIN 08:10
PROVIDERS: ATTEND Internal Medicine Critical Care Medicine
DX: J47.9 Bronchiectasis, uncomplicated (principal); J84.10 Pulmonary fibrosis, unspecified
CPT/HCPCS: 71250

== ENCOUNTER → 2018-02-19 | Outpatient (CLI) | payer MEDICARE, BC ==
--- NOTE | 2018-02-19 15:53 | US ---
EXAMINATION TYPE: US groin LT DATE OF EXAM: 02/19/2018 COMPARISON: NONE CLINICAL HISTORY: R10.32Left lower quadrant pain. Patient states left groin pain with walking, no hina n with climbing stairs. Scanned left groin, no definite abnormality seen. Vessels are patent, no evidence for hernia with jose rahel, no masses seen. IMPRESSION: No significant abnormality appreciated at this time.
== END | disposition home or self-care (01) ==
LOC: RADUSWWP 13:25
PROVIDERS: ATTEND Internal Medicine
DX: R10.32 Left lower quadrant pain (principal)

== ENCOUNTER → 2018-02-19 | Outpatient (CLI) | payer MEDICARE, BC ==
--- NOTE | 2018-02-19 14:26 | XR ---
EXAMINATION TYPE: XR Hip Complete LT DATE OF EXAM: 02/19/2018 CLINICAL HISTORY: Left hip pain for one week. TECHNIQUE: AP and frogleg views of the left hip are obtained. COMPARISON: None. FINDINGS: There is no acute fracture/dislocation evident in the left hip. Moderate to severe axial j oint space loss with head neck junction collar spurring is redemonstrated. Vascular calcification in the medial soft tissue is noted. IMPRESSION: As above.
== END | disposition home or self-care (01) ==
LOC: RADXRMAIN 13:57
PROVIDERS: ATTEND Nurse Practitioner Family
DX: M25.552 Pain in left hip (principal)
CPT/HCPCS: 73502

== ENCOUNTER 2019-06-13 07:27 | Observation (INO) | payer MEDICARE, BC ==
--- NOTE | 2019-06-13 07:52 | ED ---
General Adult HPI - General Chief complaint: Weakness Stated complaint: Neuro Deficits Time Seen by Provider: 06/13/19 07:27 Source: patient, EMS, RN notes reviewed, old records reviewed Mode of arrival: EMS Limitations: no limitations - History of Present Illness Initial comments: This is an 88-year-old male who presents emergency department today after he had weakness and numbness on his right side when he got up. Patient states it occurred when he was in the shower and it resolved by the time he came to the emergency department. Patient states his right side was definitely weaker and he was having some numbness on his right side. Patient denied any facial droop when he looked in the mirror. Patient denies any visual disturbance or speech disturbance. Patient denied any chest pain difficulty breathing shortness of breath. Patient denies any recent fever chills or cough. Patient states she has a past history of high blood pressure. Patient denies any abdominal pain patient denies nausea vomiting diarrhea. - Related Data Home Medications Medication Instructions Recorded Confirmed Losartan [Cozaar] 50 mg PO DAILY 10/29/14 06/13/19 amLODIPine [Norvasc] 5 mg PO DAILY 10/29/14 06/13/19 Simvastatin [Zocor] 20 mg PO DAILY 01/06/17 06/13/19 Tamsulosin HCl [Flomax] 0.4 mg PO DAILY 01/06/17 06/13/19 Cholecalciferol [Vitamin D3 (25 1,000 unit PO DAILY 06/13/19 06/13/19 Mcg = 1000 Iu)] Cyanocobalamin [Vitamin B-12] 500 mcg PO DAILY 06/13/19 06/13/19 guaiFENesin SYRUP 100MG/5ML 200 mg PO Q6H PRN 06/13/19 06/13/19 [Robitussin] Allergies Allergy/AdvReac Type Severity Reaction Status Date / Time Sulfa (Sulfonamide Allergy Unknown Verified 06/13/19 08:35 Antibiotics) Review of Systems ROS Statement: Those systems with pertinent positive or pertinent negative responses have been documented in the HPI. ROS Other: All systems not noted in ROS Statement are negative. Past Medical History Past Medical History: CVA/TIA, Hyperlipidemia, Hypertension, Pneumonia History of Any Multi-Drug Resistant Organisms: None Reported Past Surgical History: Cholecystectomy, Heart Catheterization, Hernia Repair Past Psychological History: No Psychological Hx Reported Smoking Status: Never smoker Past Alcohol Use History: Occasional Past Drug Use History: None Reported - Past Family History Father Family Medical History: No Reported History Mother Family Medical History: No Reported History General Exam - General Exam Comments Initial Comments: GENERAL: Patient is well-developed and well-nourished. Patient is nontoxic and well-h ydrated and is in mild distress. ENT: Neck is soft and supple. No significant lymphadenopathy is noted. Oropharynx is clear. Moist mucous membranes. Neck has full range of motion without eliciting any pain. EYES: The sclera were anicteric and conjunctiva were pink and moist. Extraocular mov ements were intact and pupils were equal round and reactive to light. Eyelids were unremarkable. PULMONARY: Unlabored respirations. Good breath sounds bilaterally. No audible rales rhonchi or wheezing was noted. CARDIOVASCULAR: There is a regular rate and rhythm without any murmurs gallops or rubs. ABDOMEN: Soft and nontender with normal bowel sounds. SKIN: Skin is clear with no lesions or rashes and otherwise unremarkable. NEUROLOGIC: Patient is alert and oriented x3. Cranial nerves II through XII are grossly intact. Motor and sensory are also intact. Normal speech, volume and content. Symmetrical smile. MUSCULOSKELETAL: Normal extremities with adequate strength and full range of motion. LYMPHATICS: No significant lymphadenopathy is noted PSYCHIATRIC: Normal psychiatric evaluation. Limitations: no limitations Course Vital Signs 06/13/19 06/13/19 07:30 07:52 Temperature 98.3 F 98.3 F Pulse Rate 82 82 Respiratory 20 20 Rate Blood Pressure 199/93 148/73 O2 Sat by Pulse 95 95 Oximetry Medical Decision Making - Medical Decision Making EKG shows sinus bradycardia at 54 bpm VT interval is 210 QRS is 86 QT interval 412 QTC is 390 per patient's EKG shows no ST segment elevation or depression or T wave abnormalities are noted. Computed tomography scan of the brain shows no acute abnormality. Patient's chest x-ray shows no acute abnormality. - Lab Data Result diagrams: 06/13/19 07:45 Lab Results 06/13/19 Range/Units 07:45 WBC 7.2 (3.8-10.6) k/uL RBC 4.92 (4.30-5.90) m/uL Hgb 15.5 (13.0-17.5) gm/dL Hct 45.6 (39.0-53.0) % MCV 92.8 (80.0-100.0) fL MCH 31.6 (25.0-35.0) pg MCHC 34.0 (31.0-37.0) g/dL RDW 13.4 (11.5-15.5) % Plt Count 174 (150-450) k/uL Neutrophils % 67 % Lymphocytes % 22 % Monocytes % 5 % Eosinophils % 3 % Basophils % 1 % Neutrophils # 4.8 (1.3-7.7) k/uL Lymphocytes # 1.6 (1.0-4.8) k/uL Monocytes # 0.4 (0-1.0) k/uL Eosinophils # 0.2 (0-0.7) k/uL Basophils # 0.1 (0-0.2) k/uL Disposition Clinical Impression: TIA (transient ischemic attack) Disposition: ADMITTED IP TO THIS HOSP Referrals: Liz Arce MD [Primary Care Provider] - 1-2 days Time of Disposition: 08:48
--- NOTE | 2019-06-13 08:05 | CT ---
EXAMINATION TYPE: CT brain wo con DATE OF EXAM: 06/13/2019 COMPARISON: 01/06/2017 HISTORY: Neuro deficit, acute stroke suspected CT DLP: 1099.[address] of the brain was performed. The ventricles, basal cisterns and sulci overlying the cerebral convexities demonstrate mild enlargem ent. There is no evidence for intracranial hemorrhage or sulcal effacement. There is decreased attenuation about the periventricular white matter and deep white matter of both c erebral hemispheres, compatible with chronic small vessel ischemia. Differential diagnosis does inclu de demyelination. No mass effects are seen.No midline shift. Osseous calvarium is intact. If symptoms persist consider MRI. IMPRESSION: 1. Age related atrophic and chronic small vessel ischemic change without acute intracranial process s een at this time.
--- NOTE | 2019-06-13 08:10 | XR ---
EXAMINATION TYPE: XR chest 2V DATE OF EXAM: 06/13/2019 COMPARISON: 01/06/2017 HISTORY: Shortness of breath TECHNIQUE: Frontal and lateral views of the chest are obtained. FINDINGS: Scattered senescent parenchymal changes noted. Hyperinflation compatible with COPD. No evidence for infiltrate. No evidence for atelectasis. Stable granuloma left mid lung zone. Heart size is stable. Mediastinal structures are stable and grossly unremarkable. No evidence for hilar prominence. Degenerative changes dorsal spine. IMPRESSION: 1. No evidence for acute pulmonary disease.
[2019-06-13 08:25] LABS: Basophils # (A) 0.1 k/uL (0-0.2); Basophils % (A) 1 %; Eosinophils # (A) 0.2 k/uL (0-0.7); Eosinophils % (A) 3 %; HCT 45.6 % (39.0-53.0); HGB 15.5 gm/dL (13.0-17.5); Lymphocytes # (A) 1.6 k/uL (1.0-4.8); Lymphocytes % (A) 22 %; MCH 31.6 pg (25.0-35.0); MCV 92.8 fL (80.0-100.0); Mean Platelet Volume 9.8; Monocytes # (A) 0.4 k/uL (0-1.0); Monocytes % (A) 5 %; Neutrophils # (A) 4.8 k/uL (1.3-7.7); Neutrophils % (A) 67 %; Platelet Count 174 k/uL (150-450); RBC 4.92 m/uL (4.30-5.90); RDW 13.4 % (11.5-15.5); WBC 7.2 k/uL (3.8-10.6)
[2019-06-13] MEDS ORDERED: ASPIRIN 325 MG TAB PO STA (08:48)
[2019-06-13 09:26] LABS: Partial Thromboplastin Time 26.4 sec (22.0-30.0); Prothrombin Time 10.7 sec (9.0-12.0)
[2019-06-13 09:56] LABS: Albumin 4.2 g/dL (3.5-5.0); Calcium 9.5 mg/dL (8.4-10.2); Potassium 4.3 mmol/L (3.5-5.1); Total Bilirubin 0.7 mg/dL (0.2-1.3); Total Protein 7.5 g/dL (6.3-8.2)
--- NOTE | 2019-06-13 09:58 | US ---
EXAMINATION TYPE: US carotid duplex BILAT DATE OF EXAM: 06/13/2019 COMPARISON: NONE CLINICAL HISTORY: TIA . EXAM MEASUREMENTS: RIGHT: Peak Systolic Velocity (PSV) cm/sec ----- Right CCA: 78.7 ----- Right ICA: 71.1 ----- Right ECA: 63.6 ICA/CCA ratio: 0.9 RIGHT: End Diastole cm/sec ----- Right CCA: 17.1 ----- Right ICA: 16.6 ----- Right ECA: 5.4 LEFT: Peak Systolic Velocity (PSV) cm/sec ----- Left CCA: 70.3 ----- Left ICA: 71.1 ----- Left ECA: 81.0 ICA/CCA ratio: 1.0 LEFT: End Diastole cm/sec ----- Left CCA: 13.6 ----- Left ICA: 20.7 ----- Left ECA: 0.0 VERTEBRALS (direction of flow): Right Vertebral: Antegrade Left Vertebral: Antegrade Rhythm: Normal IMPRESSION: Mild plaque with no significant velocity increases bilaterally. Criteria for Assigning % of Stenosis / Diameter reduction (Estimation based on the indirect measurements of the internal carotid artery velocities (ICA PSV). 1. Normal (no stenosis)=ICA PSV < 125 cm/s: ratio < 2.0: ICA EDV<40 cm/s. 2. Less than 50% stenosis=ICA PSV < 125 cm/s: ratio < 2.0: ICA EDV<40 cm/s. 3. 50 to 69% stenosis=ICA PSV of 125 to 230 cm/s: ration 2.0 ? 4.0: ICA EDV 40-100 cm/s. 4. Greater than 70% stenosis to near occlusion= ICA PSV > 230 cm/s: ratio > 4.0: ICA EDV > 100 cm/s. 5. Near occlusion= ICA PSV velocities may be low or undetectable: variable ratio and ICA EDV. 6. Total occlusion=unable to detect flow.
[2019-06-13] MEDS ORDERED: CLOPIDOGREL 75 MG TAB PO STA (12:58)
--- NOTE | 2019-06-13 13:25 | CONS ---
CONSULTATION Mr. Veronica is an 88-year-old gentleman who is seen for the cardiac evaluation. This patient's medical records reviewed. This patient came to the emergency room with a complaint of numbness in the right upper and lower extremity. Patient was in the shower and he felt that his right arm and the right leg was numb. He did not have any headache, nausea or vomiting. The patient did not have any weakness in the arm. He was holding the shampoo bottle in his right arm, but he did not fall down. Subsequently patient got out of the shower and EMS was called in. By the time patient arrived here, his symptoms had disappeared. This patient has a past history of intermittent numbness in the right arm. His previous CAT scan has showed a small vessel disease without any evidence of any definite acute stroke. There is no definite previous history of atrial fibrillation. Patient has a history of hypertension. The patient underwent a cardiac catheterization in 2017 which showed mild coronary artery disease. Patient denies any exertional angina. The patient is otherwise physically and functionally independent. PHYSICAL EXAMINATION: Physical examination at present reveals an 88-year-old gentleman who does not appear to be in any acute distress. The patient's blood pressure is 140/80 mmHg, heart rate is 70 per minute. Head/ENT examination is negative. Neck is supple. There is no increase in jugular venous pressure. Both the carotid pulses are felt. There is no bruit. Chest is symmetrical. HEART: The PMI is not felt. First and second heart sounds are normal. There is no evidence of any murmur. Lungs are clinically clear to auscultation and percussion. Abdomen is negative. EXTREMITIES: Peripheral pulsations are 2+. EKG shows normal sinus rhythm. FINAL IMPRESSION: This patient is admitted with the symptoms of numbness in the right upper and lower extremity. The possibility of transient ischemic attack is considered. The CT scan of the brain is normal. Patient currently is in normal sinus rhythm. RECOMMENDATIONS: I will recommend to treat the patient with aspirin and Plavix for 3 weeks and subsequently continue on aspirin. Neurology consult being awaited. MRI may be helpful. A possibility of cervical arthritis is also being considered. At the time of the discharge the patient can be evaluated with a 30-day event monitor. MMODL / IJN: [id number] /
--- NOTE | 2019-06-13 14:39 | P.HPIM ---
History of Present Illness H&P Date: 06/13/19 Chief Complaint: right-sided numbness This is an 88-year-old male patient of Dr. Arce and Dr. Dhillon with past medical history of hypertension, hyperlipidemia. He has had a heart catheterization that found normal coronary arteries with mild calcification 30-4 0% lesion in the mid LAD, tortuous aorta. Last echocardiogram revealed EF of 55-60%, mild mitral regurgitation, mild tricuspid regurgitation. He denies any history of CVA or TIA. Patient states that he got up this morning at 6:30 and went into the bathroom. He got into the shower and when he was almost finished he tried to shredder picker a bottle of shampoo adding new that something was wrong with his right side. He had no feeling and numbness sensation. He got out of the shower and caregiver for his was in the home and assisted him. He denies any dizziness, no visual changes. He complains of pain in his right big toe that's off and on. He states he has had a history of migraines without a headache for the past year which involves the center of his vision and everything slides to the right and downward. This seems to be more frequent. He followed up with his zone manager, Dr. Vega last week and everything was fine. He does have prism lenses for double vision. He was recently seen by Dr. Arce and at that time his left ear area was bothering him and thought to be related to occipital neuralgia. [facility] Patient came into [facility] emergency center by EMS. Initial blood pressure was 199/93. EKG was a sinus bradycardia with no acute ST changes. Lab work was unremarkable and patient was to be placed as an obse rvation status and neurology consult requested. Patient does state that he is feeling much better than when he came in. Right side is a little weaker than the left. He still can feel numbness in his right thumb in his right hand feels stiffer than his left. Review of Systems Constitutional: Denies chills, Denies fatigue, Denies fever, Denies lethargy, D enies malaise, Denies poor appetite, Denies sweats, Denies weakness Eyes: denies blurred vision, denies pain Ears, nose, mouth and throat: Denies dysphagia, Denies headache, Denies nasal congestion, Denies nasal discharge, Denies sore throat, Denies vertigo Cardiovascular: Denies chest pain, Denies decreased exercise tolerance, Denies dyspnea on exertion, Denies edema, Denies leg edema, Denies lightheadedness, Denies shortness of breath, Denies syncope Respiratory: Denies cough, Denies cough with sputum, Denies dyspnea, Denies excessive sputum, Denies hemoptysis, Denies home oxygen, Denies respiratory infections Gastrointestinal: Denies abdominal pain, Denies diarrhea, Denies loss of appetite, Denies nausea, Denies vomiting Genitourinary: Denies dysuria, Denies urinary retention Musculoskeletal: Reports arm numbness/tingling, Reports leg numbness/tingling, Reports muscle weakness, Denies frequent falls Integumentary: Denies pruritus, Denies rash, Denies wounds Neurological: Reports lack of coordination, Reports motor disturbance, Reports paresthesias, Reports sensory deficit, Reports tingling, Reports weakness, Denies aphasia, Denies change in mentation, Denies change in speech, Denies confusion, Denies convulsions, Denies gait dysfunction, Denies loss of vision, Denies memory loss, Denies numbness, Denies seizures, Denies syncope, Denies transient paralysis, Denies vertigo, Denies visual changes Psychiatric: Denies anxiety, Denies depression Endocrine: Denies fatigue, Denies weight change Past Medical History Past Medical History: Chest Pain / Angina, GERD/Reflux, Hyperlipidemia, Hypertension, Pneumonia Additional Past Medical History / Comment(s): 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 History of Any Multi-Drug Resistant Organisms: None Reported Past Surgical History: Adenoidectomy, Cholecystectomy, Heart Catheterization, Hernia Repair, Tonsillectomy Additional Past Surgical History / Comment(s): R inguinal hernia reparis x2, colonoscopies, bilateral cataract removals/lens implants. Past Anesthesia/Blood Transfusion Reactions: No Reported Reaction, Motion Sickness Smoking Status: Never smoker Additional Past Alcohol Use History / Comment(s): Patient is a lifelong nonsmoker. He drinks 1 glass of wine daily. He lives at home with his and is a primary caregiver and has a caregiver's for her as well. Patient resides at [facility]. - Past Family History Father Family Medical History: CVA/TIA Additional Family Medical History / Comment(s): Father of a cerebral hemorrhage at the age of 55 yrs. Mother Family Medical History: No Reported History Additional Family Medical History / Comment(s): Mother was healthy and lived to be 94 yrs old. She had a stroke at age 87. Sister(s) Additional Family Medical History / Comment(s): Patient has sister that at 6 months old had congenital heart defect. Medications and Allergies Home Medications Medication Instructions Recorded Confirmed Type Losartan [Cozaar] 50 mg PO DAILY 10/29/14 06/13/19 History amLODIPine [Norvasc] 5 mg PO DAILY 10/29/14 06/13/19 History Simvastatin [Zocor] 20 mg PO DAILY 01/06/17 06/13/19 History Tamsulosin HCl [Flomax] 0.4 mg PO DAILY 01/06/17 06/13/19 History Cholecalciferol [Vitamin D3 (25 1,000 unit PO DAILY 06/13/19 06/13/19 History Mcg = 1000 Iu)] Cyanocobalamin [Vitamin B-12] 500 mcg PO DAILY 06/13/19 06/13/19 History guaiFENesin SYRUP 100MG/5ML 200 mg PO Q6H PRN 06/13/19 06/13/19 History [Robitussin] Allergies Allergy/AdvReac Type Severity Reaction Status Date / Time Sulfa (Sulfonamide Allergy Unknown Verified 06/13/19 08:35 Antibiotics) Physical Exam Vitals: Vital Signs Temp Pulse Resp BP Pulse Ox 06/13/19 11:00 20 150/70 96 06/13/19 10:00 20 154/82 98 06/13/19 09:15 20 06/13/19 09:12 67 20 156/77 96 06/13/19 09:02 67 20 156/77 96 06/13/19 08:37 70 20 146/70 96 06/13/19 07:52 98.3 F 82 20 148/73 95 06/13/19 07:30 98.3 F 82 20 199/93 95 Intake and Output 06/12/19 06/13/19 06/13/19 22:59 06:59 14:59 Other: Weight 73.028 kg - Constitutional General appearance: average body habitus, cooperative, no mild distress, no morbidly obese, no acute distress, no obese, no severe distress, no thin - EENT Eyes: no anicteric sclerae, no disc margins sharp, no edentulous, no EOMI, no PERRLA, no fundus normal, no photophobia, no dentition normal, no poor dentition, no ptosis, no scleral icterus, normal appearance ENT: hard of hearing, no hearing grossly normal, no NA/AT, normal oropharynx, no other, no pharyngeal erythema, no thrush, no tonsillar exudates, tonsillar swelling Ears: bilateral: normal - Neck Neck: no lymphadenopathy, normal ROM, no other, no rigidity, no stridor, no thyromegaly Carotids: bilateral: upstroke normal Thyroid: bilateral: normal size - Respiratory Respiratory: bilateral: CTA, diminished - Cardiovascular Rhythm: regular Heart sounds: normal: S1, S2 Abnormal Heart Sounds: S3 Gallop - Gastrointestinal General gastrointestinal: normal bowel sounds, no distended, no hepatomegaly, no rigid, no scaphoid, soft, no splenomegaly, no tenderness, no umbilical hernia, no ventral hernia - Integumentary Integumentary: no calor, no cellulitis, no cyanotic, no decreased turgor, no fl ushed, no jaundiced, normal, no normal turgor, pale, rash, no ulcer - Neurologic Neurologic: CNII-XII intact - Musculoskeletal Musculoskeletal: gait normal, generalized weakness, strength equal bilaterally - Psychiatric Psychiatric: A&O x's 3, appropriate affect, finger to nose test normal, decreased reflexes in the lower extremities bilaterally. Sensation equal to the lower extremities bilaterally. Results CBC & Chem 7: 06/13/19 07:45 06/13/19 09:08 Labs: Abnormal Lab Results - Last 24 Hours (Table) 06/13/19 Range/Units 09:08 Glucose 101 H (74-99) mg/dL HDL Cholesterol 29 L (40-60) mg/dL Thrombosis Risk Factor Assmnt - DVT/VTE Prophylaxis DVT/VTE Prophylaxis: Pharmacologic Prophylaxis ordered - Choose All That Apply Other Risk Factors: Yes Each Risk Factor Represents 3 Points: Age 75 years or older Other congenital or acquired thrombophilia - If yes, enter type in comment: No Thrombosis Risk Factor Assessment Total Risk Factor Score: 3 Thrombosis Risk Factor Assessment Level: Moderate Risk Assessment and Plan Plan: 1. TIA. Rule out CVA. Consult with neurology. Continue aspirin 325 mg daily, statin changed to Lipitor 40 mg daily. Echocardiogram ordered. PT, OT, speech therapy evaluations. 2. Hypertension. Continue Norvasc 5 mg daily, Cozaar 50 mg daily. 3. Hyperlipidemia. Continue Lipitor. Patient is normally on simvastatin at home. 4. Benign prostatic hypertrophy. Continue Flomax. 5. DVT prophylaxis. Heparin subcu. 6. GI prophylaxis. Pepcid. Patient placed as an observation status. Discharge plan:most likely return home. Impression and plan of care have been directed as dictated by the signing physician. Janell Mendosa nurse practitioner acting as scribe for signing physician.
[2019-06-13 15:18] VITALS: RESP 18
--- NOTE | 2019-06-13 19:09 | ECHOF ---
Referral Reason:LVF MEASUREMENTS -------- HEIGHT: 170.2 cm WEIGHT: 73.0 kg BP: 150/70 RVIDd: 2.4 cm (< 3.3) IVSd: 1.2 cm (0.6 - 1.1) LVIDd: 4.1 cm (3.9 - 5.3) LVPWd: 1.2 cm (0.6 - 1.1) IVSs: 1.5 cm LVIDs: 3.0 cm LVPWs: 1.7 cm LA Diam: 4.0 cm (2.7 - 3.8) LAESV Index (A-L): 28.99 ml/m Ao Diam: 3.2 cm (2.0 - 3.7) AV Cusp: 1.6 cm (1.5 - 2.6) MV EXCURSION: 16.920 mm (> 18.000) MV EF SLOPE: 47 mm/s (70 - 150) EPSS: 0.5 cm MV E Francisco: 0.94 m/s MV DecT: 180 ms MV A Francisco: 0.84 m/s MV E/A Ratio: 1.12 AR PHT: 952 ms RAP: 5.00 mmHg RVSP: 37.42 mmHg FINDINGS -------- Sinus rhythm. This was a technically good study. The left ventricular size is normal. There is borderline concentric left ventricular hypertrophy. Overall left ventricular systolic function is normal with, an EF between 60 - 65 %. The right ventricle is normal in size. LA is midly dilated 29-33ml/m2. The right atrium is normal in size. Interatrial and interventricular septum intact. The aortic valve is trileaflet and appears structurally normal. There is mild aortic regurgitation. Mild mitral regurgitation is present. Mild tricuspid regurgitation present. There is mild pulmonary hypertension. The right ventricular systolic pressure, as measured by Doppler, is 37.42mmHg. There is no pulmonic regurgitation present. The aortic root size is normal. Normal inferior vena cava with normal inspiratory collapse consistent with estimated right atrial pre ssure of 5 mmHg. There is no pericardial effusion. CONCLUSIONS -------- 1. Sinus rhythm. 2. This was a technically good study. 3. The left ventricular size is normal. 4. There is borderline concentric left ventricular hypertrophy. 5. Overall left ventricular systolic function is normal with, an EF between 60 - 65 %. 6. The right ventricle is normal in size. 7. LA is midly dilated 29-33ml/m2. 8. The right atrium is normal in size. 9. Interatrial and interventricular septum intact. 10. The aortic valve is trileaflet and appears structurally normal. 11. There is mild aortic regurgitation. 12. Mild mitral regurgitation is present. 13. Mild tricuspid regurgitation present. 14. There is mild pulmonary hypertension. 15. The right ventricular systolic pressure, as measured by Doppler, is 37.42mmHg. 16. There is no pulmonic regurgitation present. 17. The aortic root size is normal. 18. Normal inferior vena cava with normal inspiratory collapse consistent with estimated right atrial pressure of 5 mmHg. 19. There is no pericardial effusion. ANGLEDOZER OPERATOR: Nola Mark RDCS
[2019-06-13] MEDS: HEPARIN SODIUM,PORCINE 5,000 UNIT/ML 1 ML VIAL SQ SCH (19:54)
[2019-06-13] MEDS ORDERED: ATORVASTATIN 40 MG TAB PO SCH (21:00)
--- NOTE | 2019-06-13 22:03 | P.CNNES ---
History of Present Illness Consult date: 06/13/19 Reason for Consult: TIA Chief complaint: RIGHT-SIDED WEAKNESS AND NUMBNESS History of Present Illness: HISTORY OF PRESENT ILLNESS: Thank you for allowing me to evaluate Mr. James Veronica. Mr. Veronica is an 88 year-old L-handed man with PMHx of hyperlipidemia, hypertension, who presented to [facility] for sudden onset R-sided numbness and weakness. Patient states that he was taking a shower when he bent down to grab a shampoo bottle and he realized he couldn't really feel his hand touching the bottle and his R leg also didn't feel normal. 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 Patient denies ever having similar symptoms. Symptoms resolved within a couple of hours. Denies recent sickness, headache, nausea, vomiting, dizziness, double/blurry vision (although patient has had double vision while driving for many years, which corrects with his prism glasses). PAST MEDICAL HISTORY: hyperlipidemia, hypertension PAST SURGICAL HISTORY: cholecystectomy, heart catheterization, hernia repair HOME MEDICATIONS: vitamin B12,losartan, amlodipine, simvastatin, tamsulosin, vitamin D ALLERGIES: sulfa SOCIAL HISTORY: never smoker. Occasional alcohol drinker FAMILY HISTORY: none reported REVIEW OF SYSTEMS: The 14 systems are reviewed and no additional points are identified compared to the review of systems documented history and physical PHYSICAL EXAMINATION: VITAL SIGNS: T 98.3 HR 82 RR 20 BP 148/73 O2 sat 95% on 2L of O2 via NC GEN.: NAD, pleasant and cooperative HEENT: NCAT, sclera without icterus NECK: Supple SKIN AND EXTREMITIES: [Warm to touch, no edema] NEURO: MENTAL STATUS: Patient alert and oriented to self, place, time. Able to name the current president. Speech fluent, able to name and repeat, following all commands readily. No right and left disorientation, extinction to double simultaneous stimulation, finger agnosia, neglect. CRANIAL NERVES II THROUGH XII: II: Pupils are equal and reactive to light symmetrically. No afferent pupillary defect. Visual montalvo are intact. III, IV, : No ptosis. Extraocular movements full. No nystagmus. V: Facial sensat ion intact from V1-3. VII. No clear facial asymmetry. VIII: Hearing intact to finger rub bilaterally. IX, X: Symmetric palate elevation. XI: Shoulder shrug intact. XII: Tongue midline without fasciculation or atrophy. MOTOR: Normal bulk/tone. No pronator drift or tremor. Strength is 5/5 througho ut all 4 extremities. SENSORY: Intact to light touch, in all 4 extremities. REFLEXES: 2+ throughout. Toes are downgoing. COORDINATION: Finger to nose intact. No dysmetria. GAIT: Narrow-based and stable. Able to toe/heel/tandem walk DIAGNOSTIC TESTING: LABORATORY: WBC 7.2 hemoglobin 15.5 platelet 174 sodium 141 potassium 4.3 chloride 105 bicarb 26 BUN 15 creatinine 1.20 glucose 101 AST 25 ALT 20 alk phos 77 troponin <0.012 total cholesterol 133 LDL 79 HDL 29 triglycerides 127 IMAGING: CT head without contrast 06/13/2019: age-related atrophic and chronic small vessel acute intracranial process time. Carotid Doppler 06/13/19: Mild plaque with no significant velocity increases bilaterally ASSESSMENT: 88 year-old L-handed man with PMHx of hyperlipidemia, hypertension, who presented to [facility] for sudden onset R-sided numbness and weakness. Patient with risk factors for TIA/stroke. As such, recommend stroke work-up and management. RECOMMENDATIONS: 1. MRI brain without contrast 2. Carotid US 3. Transthoracic echocardiogram 4. Cardiac monitoring 5. Permissive HTN for 24-48 hours SBP >220. Give labetalol 10mg IV q1h PRN for SBP >220 DBP >110 6. ASA 81mg qday and Plavix 75mg qday (dual antiplatelet therapy for 3 weeks per POINT trial, then Aspirin 81mg qday only) 7. Atorvastatin 80mg qhs 8. Labs: A1C, TSH, FLP 9. PT/OT/ST per protocol 10. Discussed with patient about stroke prevention guidelines. Medication compliance, hypertension/diabetes control, lifestyle changes including no smoking, drinking in moderation, losing weight, exercising, eating healthier 11. Neurology will continue to follow 12. Patient needs to follow up with neurologist as outpatient with her 1-2 weeks of discharge 13. Discussed ED precautions: return to ED if having severe headache, nausea, vomiting, vision deficits, speech difficulty, facial asymmetry, weakness, numbness or tingling. Past Medical History Past Medical History: Chest Pain / Angina, GERD/Reflux, Hyperlipidemia, Hypertension, Pneumonia Additional Past Medical History / Comment(s): Ocular migraines which have increased significantly per pt in the past 2 weeks, cervical pain/DDD, lumbar pain with ruptured discs, L hip pain (bone on bone), diverticular disease, hiatal hernia, vertigo, urinary retention. History of Any Multi-Drug Resistant Organisms: None Reported Past Surgical History: Adenoidectomy, Cholecystectomy, Heart Catheterization, Hernia Repair, Tonsillectomy Additional Past Surgical History / Comment(s): R inguinal hernia reparis x2, colonoscopies, bilateral cataract removals/lens implants. Past Anesthesia/Blood Transfusion Reactions: No Reported Reaction, Motion Sickness Smoking Status: Never smoker - Past Family History Father Family Medical History: CVA/TIA Additional Family Medical History / Comment(s): Father of a cerebral hemorrhage at the age of 55 yrs. Mother Family Medical History: No Reported History Additional Family Medical History / Comment(s): Mother was healthy and lived to be 94 yrs old. Sister(s) Additional Family Medical History / Comment(s): Patient has sister that at 6 months old had congenital heart defect. Medications and Allergies Home Medications Medication Instructions Recorded Confirmed Type Losartan [Cozaar] 50 mg PO DAILY 10/29/14 06/13/19 History amLODIPine [Norvasc] 5 mg PO DAILY 10/29/14 06/13/19 History Simvastatin [Zocor] 20 mg PO DAILY 01/06/17 06/13/19 History Tamsulosin HCl [Flomax] 0.4 mg PO DAILY 01/06/17 06/13/19 History Cholecalciferol [Vitamin D3 (25 1,000 unit PO DAILY 06/13/19 06/13/19 History Mcg = 1000 Iu)] Cyanocobalamin [Vitamin B-12] 500 mcg PO DAILY 06/13/19 06/13/19 History guaiFENesin SYRUP 100MG/5ML 200 mg PO Q6H PRN 06/13/19 06/13/19 History [Robitussin] Allergies Allergy/AdvReac Type Severity Reaction Status Date / Time Sulfa (Sulfonamide Allergy Unknown Verified 06/13/19 08:35 Antibiotics) Physical Examination - Vital Signs Vital Signs: Vital Signs Temp Pulse Resp BP Pulse Ox 06/13/19 11:00 20 150/70 96 06/13/19 10:00 20 154/82 98 06/13/19 09:15 20 06/13/19 09:12 67 20 156/77 96 06/13/19 09:02 67 20 156/77 96 06/13/19 08:37 70 20 146/70 96 06/13/19 07:52 98.3 F 82 20 148/73 95 06/13/19 07:30 98.3 F 82 20 199/93 95 Intake and Output 06/12/19 06/13/19 06/13/19 22:59 06:59 14:59 Other: Weight 73.028 kg Results - Laboratory Findings CBC and BMP: 06/13/19 07:45 06/13/19 09:08 Abnormal Lab Findings: Abnormal Labs 06/13/19 09:08 Glucose 101 H HDL Cholesterol 29 L
[2019-06-14] MEDS: HEPARIN SODIUM,PORCINE 5,000 UNIT/ML 1 ML VIAL SQ SCH (08:00)
[2019-06-14 08:09] VITALS: BP 169/78; PULSE 54; TEMP 98.1
[2019-06-14] MEDS ORDERED: LOSARTAN 50 MG TAB PO SCH (09:00)
[2019-06-14] MEDS ORDERED: FAMOTIDINE 20 MG TAB PO SCH (09:00)
[2019-06-14] MEDS ORDERED: amLODIPine 5 MG TAB PO SCH (09:00)
[2019-06-14] MEDS ORDERED: ASPIRIN 325 MG TAB PO SCH (09:00)
[2019-06-14] MEDS ORDERED: CLOPIDOGREL 75 MG TAB PO SCH (09:00)
[2019-06-14] MEDS ORDERED: TAMSULOSIN 0.4 MG CAP.ER.24H PO SCH (09:00)
[2019-06-14] MEDS ORDERED: ATORVASTATIN 10 MG TAB PO SCH (09:00)
--- NOTE | 2019-06-14 11:52 | MR ---
MR brain without contrast history: Concern for stroke, neuro deficit Correlation to CT brain 06/13/2019 Multiplanar multisequence imaging obtained through the brain There is a focus of increased signal in the left frontal arora-white junction level which is thought t o represent T2 shine through Periventricular white matter shows confluent and scattered hyperintensit ies on inversion recovery and T2-weighted sequences extending to the subcortical, juxtacortical, sadaf callosal white matter. There is cortical atrophy. Inflammatory changes are present within the right m astoid air cells, increased signal on T1 and T2-weighted sequences. There are normal vascular flow vo ids. Left vertebral artery is dominant. There is no hemorrhage or hydrocephalus. The orbits show symm etric appearance. Focal encephalomalacia present in the inferior left cerebellar hemisphere measures 7 to [address] 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 No definite subacute infarct as de scribed. Right mastoiditis.
--- NOTE | 2019-06-14 13:12 | P.PN ---
Progress Note - Text Progress Note Date: 06/14/19 SUBJECTIVE/INTERVAL EVENTS: No acute overnight events. Symptoms have not reappeared. Denies headache, nausea, vomiting, dizziness, weakness, numbness or tingling. PHYSICAL EXAMINATION: VITAL SIGNS: T 98.1 HR 54 RR 18 BP 169/78 O2 sat 94% on RA GEN.: NAD, pleasant and cooperative HEENT: NCAT, sclera without icterus NECK: Supple SKIN AND EXTREMITIES: Warm to touch, no edema NEURO: MENTAL STATUS: Patient alert and oriented to self, place, time. Able to name the current president. Speech fluent, able to name and repeat, following all commands readily. No right and left disorientation, extinction to double simultaneous stimulation, finger agnosia, neglect. CRANIAL NERVES II THROUGH XII: II: Pupils are equal and reactive to light symmetrically. No afferent pupillary defect. Visual montalvo are intact. III, IV, : No ptosis. Extraocular movements full. No nystagmus. V: Facial sensation intact from V1-3. VII. No clear facial asymmetry. VIII: Hearing intact to finger rub bilaterally. IX, X: Symmetric palate elevation. XI: Shoulder shrug intact. XII: Tongue midline without fasciculation or atrophy. MOTOR: Normal bulk/tone. No pronator drift or tremor. Strength is 5/5 throughout all 4 extremities. SENSORY: Intact to light touch, in all 4 extremities. REFLEXES: 2+ throughout. Toes are downgoing. COORDINATION: Finger to nose intact. No dysmetria. GAIT: Narrow-based and stable. Able to toe/heel/tandem walk DIAGNOSTIC TESTING: LABORATORY: WBC 7.2 hemoglobin 15.5 platelet 174 sodium 141 potassium 4.3 chloride 105 bicarb 26 BUN 15 creatinine 1.20 glucose 101 AST 25 ALT 20 alk phos 77 troponin <0.012 total cholesterol 133 LDL 79 HDL 29 triglycerides 127 TSH 2.090 IMAGING: CT head without contrast 06/13/2019: age-related atrophic and chronic small vessel acute intracranial process time. Carotid Doppler 06/13/19: Mild plaque with no significant velocity increases bilaterally TTE 06/13/19: SR. LV, RV and RA sizes are normal. LA is mildly dilated. EF 60-65%. Interatrial and interventricular septum intact. Cardiac monitoring: no obvious atrial arrhythmia ASSESSMENT: 88 year-old L-handed man with PMHx of hyperlipidemia, hypertension, who prese nted to [facility] for sudden onset R-sided numbness and weakness. Patient with risk factors for TIA/stroke. MRI brain w/o contrast with no acute or old stroke. Showing diffuse microvascular ischemic changes. RECOMMENDATIONS: 1. ASA 81mg qday and Plavix 75mg qday (dual antiplatelet therapy for 3 weeks per POINT trial, then Aspirin 81mg qday only) 2. Atorvastatin 80mg qhs 3. Labs: A1C 4. Discussed with patient about stroke prevention guidelines. Medication compliance, hypertension/diabetes control, lifestyle changes including no smoking, drinking in moderation, losing weight, exercising, eating healthier 5. Patient needs to follow up with neurologist as outpatient with her 1-2 weeks of discharge 6. Neurology will sign off at this time. Please feel free to contact Neurology again if with additional questions or concerns. 7. Discussed ED precautions: return to ED if having severe headache, nausea, vomiting, vision deficits, speech difficulty, facial asymmetry, weakness, numbness or tingling.
--- NOTE | 2019-06-14 15:37 | P.DS ---
Providers Date of admission: 06/13/19 08:58 Expected date of discharge: 06/14/19 Attending physician: Atiya Knight MD Consults: 06/13/19 08:49 Consult Physician Routine Consulting Provider: Ariadne Hopper Consult Reason/Comments: TIA Do you want consulting provider notified?: Yes Primary care physician: Liz Arce [facility] Course: This is an 88-year-old male patient of Dr. Arce and Dr. Dhillon with past medical history of hypertension, hyperlipidemia. He has had a heart catheterization that found normal coronary arteries with mild calcification 30- 40% lesion in the mid LAD, tortuous aorta. Last echocardiogram revealed EF of 55-60%, mild mitral regurgitation, mild tricuspid regurgitation. He denies any history of CVA or TIA. Patient states that he got up this morning at 6:30 and went into the bathroom. He got into the shower and when he was almost finished he tried to hand picker a bottle of shampoo adding new that something was wrong with his right side. He had no feeling and numbness sensation. He got out of the shower and caregiver for his was in the home and assisted him. He denies any dizziness, no visual changes. He complains of pain in his right big toe that's off and on. He states he has had a history of migraines without a headache for the past year which involves the center of his vision and everything slides to the right and downward. This seems to be more frequent. 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 He does have prism lenses for double vision. He was recently seen by Dr. Arce and at that time his left ear area was bothering him and thought to be related to occipital neuralgia. [facility] Patient came into [facility] emergency [facility] by EMS. Initial blood pressure was 199/93. EKG was a sinus bradycardia with no acute ST changes. Lab work was unremarkable and patient was to be placed as an observation status and neurology consult requested. Patient does state that he is feeling much better than when he came in. Right side is a little weaker than the left. He still can feel numbness in his right thumb in his right hand feels stiffer than his left. 06/14: Patient denies having any numbness or tingling, he denies any weakness. He has undergone MRI of the brain which revealed no acute or old stroke. There was diffuse microvascular ischemic changes. Dr. Hopper has recommended aspirin 81 mg daily and Plavix 75 mg every day. Dual antiplatelet therapy for 3 weeks and then aspirin 81 mg every day only. patient will be discharged home today in stable condition. Discharge diagnoses: 1. TIA. Rule out CVA. 2. Hypertension. 3. Hyperlipidemia. 4. Benign prostatic hypertrophy. Discharge plan: home. Impression and plan of care have been directed as dictated by the signing physician. Janell Mendosa nurse practitioner acting as scribe for signing physician. Patient Condition at Discharge: Good Plan - Discharge Summary Discharge Rx Participant: No New Discharge Prescriptions: New Aspirin EC [Ecotrin Low Dose] 81 mg PO DAILY #90 tablet. Clopidogrel Bisulfate [Plavix] 75 mg PO DAILY #21 tab Atorvastatin [Lipitor] 40 mg PO HS #30 tab Continue Losartan [Cozaar] 50 mg PO DAILY amLODIPine [Norvasc] 5 mg PO DAILY Tamsulosin HCl [Flomax] 0.4 mg PO DAILY Cyanocobalamin [Vitamin B-12] 500 mcg PO DAILY Cholecalciferol [Vitamin D3 (25 Mcg = 1000 Iu)] 1,000 unit PO DAILY guaiFENesin SYRUP 100MG/5ML [Robitussin] 200 mg PO Q6H PRN PRN Reason: Cough Discontinued Simvastatin [Zocor] 20 mg PO DAILY Discharge Medication List Losartan [Cozaar] 50 mg PO DAILY 10/29/14 [History] amLODIPine [Norvasc] 5 mg PO DAILY 10/29/14 [History] Tamsulosin HCl [Flomax] 0.4 mg PO DAILY 01/06/17 [History] Cholecalciferol [Vitamin D3 (25 Mcg = 1000 Iu)] 1,000 unit PO DAILY 06/13/19 [History] Cyanocobalamin [Vitamin B-12] 500 mcg PO DAILY 06/13/19 [History] guaiFENesin SYRUP 100MG/5ML [Robitussin] 200 mg PO Q6H PRN 06/13/19 [History] Aspirin EC [Ecotrin Low Dose] 81 mg PO DAILY #90 tablet. 06/14/19 [Rx] Atorvastatin [Lipitor] 40 mg PO HS #30 tab 06/14/19 [Rx] Clopidogrel Bisulfate [Plavix] 75 mg PO DAILY #21 tab 06/14/19 [Rx] Follow up Appointment(s)/Referral(s): Nadira Wong MD [STAFF PHYSICIAN] - 06/23/19 11:00 am () Liz Arce MD [Primary Care Provider] - 1 Week ([facility] Office will call with appointment time) Steven Dhillon MD [STAFF PHYSICIAN] - 07/04/19 8:45 am (Thursday bradycardia) Patient Instructions/Handouts: Transient Ischemic Attack (DC) Discharge Disposition: HOME SELF-CARE
== END 2019-06-14 15:03 | disposition home or self-care (01) ==
LOC: EC 07:27 → 3SCARD 08:58
PROVIDERS: ADMIT Internal Medicine; ATTEND Internal Medicine
DX: G45.9 Transient cerebral ischemic attack, unspecified (principal); I10 Essential (primary) hypertension; I25.10 Atherosclerotic heart disease of native coronary artery without angina pectoris; N40.0 Benign prostatic hyperplasia without lower urinary tract symptoms; E78.5 Hyperlipidemia, unspecified; Z79.82 Long term (current) use of aspirin; Z79.899 Other long term (current) drug therapy; Z88.2 Allergy status to sulfonamides; Z90.49 Acquired absence of other specified parts of digestive tract; Z98.42 Cataract extraction status, left eye; Z98.41 Cataract extraction status, right eye; Z96.1 Presence of intraocular lens
CPT/HCPCS: 96372 ×2; 99285; 36415; 93005; 93306; 97161; 80061 ×2; 80053; 84443; 84484; 85025; 85610; 85730; 83036; 71046; 93880; 70450; 70551; G0378 ×2; J1644 ×2

== ENCOUNTER → 2019-07-04 | Outpatient (CLI) | payer MEDICARE, BC ==
--- NOTE | 2019-07-04 10:51 | XR ---
EXAMINATION TYPE: XR chest 2V DATE OF EXAM: 07/04/2019 COMPARISON: 08/14/2018 HISTORY: 89 year-old male shortness of breath TECHNIQUE: Frontal and lateral views FINDINGS: Heart remains upper limits of normal in size. Mild elongation thoracic aorta is unchanged. Mild diffu se interstitial prominence is unchanged. Calcified granuloma left mid lung. No consolidation or pleur al effusion. IMPRESSION: Chronic changes, possible chronic bronchitis or asthma. Prior granulomatous disease.
== END | disposition home or self-care (01) ==
LOC: RADXRMAIN 10:22
PROVIDERS: ATTEND Internal Medicine Cardiovascular Disease
DX: D71 Functional disorders of polymorphonuclear neutrophils (principal); R06.02 Shortness of breath
CPT/HCPCS: 71046; 83880

== ENCOUNTER 2019-07-31 08:22 | Emergency (ER) | payer MEDICARE, BC ==
--- NOTE | 2019-07-31 08:37 | ED ---
Neuro HPI - General Chief Complaint: Neuro Symptoms/Deficit Stated Complaint: poss TIA Time Seen by Provider: 07/31/19 08:22 Source: patient, EMS, RN notes reviewed, old records reviewed Mode of arrival: EMS Limitations: no limitations - History of Present Illness Is the patient presenting with stroke symptoms?: No Initial Comments: This 89-year-old male with a recent history of TIA and admission for the same who presents today with complaints of the onset while in the shower right hand numbness later progressing to right leg numbness. He has some confusion also. This well he was in the shower. It is all now completely resolved he states. This is very similar to his last presentation. He denies any overt fevers chil ls sweats he has had a chronic cough for about 8 weeks he just finished antibiotics yesterday and is finishing steroids today for that. No shortness of breath no chest pain. No trauma reported. He does have a right-sided headache to the frontal region he states. No blurry vision no other modifying factors - Related Data Home Medications: Home Medications Medication Instructions Recorded Confirmed Losartan [Cozaar] 50 mg PO DAILY 10/29/14 07/31/19 amLODIPine [Norvasc] 5 mg PO DAILY 10/29/14 07/31/19 Tamsulosin HCl [Flomax] 0.4 mg PO DAILY 01/06/17 07/31/19 Cholecalciferol [Vitamin D3 (25 5,000 unit PO HS 06/13/19 07/31/19 Mcg = 1000 Iu)] Benzonatate [Tessalon Perles] 100 mg PO TID PRN 07/31/19 07/31/19 Cyanocobalamin (Vitamin B-12) 2,500 mcg PO HS 07/31/19 07/31/19 [Vitamin B-12] predniSONE See Taper PO DAILY 07/31/19 07/31/19 Previous Rx's Medication Instructions Recorded Aspirin EC [Ecotrin Low Dose] 81 mg PO DAILY #90 tablet. 06/14/19 Atorvastatin [Lipitor] 40 mg PO HS #30 tab 06/14/19 Clopidogrel Bisulfate [Plavix] 75 mg PO DAILY #21 tab 06/14/19 Allergies/Adverse Reactions: Allergies Allergy/AdvReac Type Severity Reaction Status Date / Time Sulfa (Sulfonamide Allergy Unknown Verified 06/13/19 08:35 Antibiotics) Review of Systems ROS Statement: Those systems with pertinent positive or pertinent negative responses have been documented in the HPI. ROS Other: All systems not noted in ROS Statement are negative. General Exam - General Exam Comments Initial Comments: Is a well-developed well-nourished awake alert oriented times 3 male Limitations: no limitations General appearance: alert, in no apparent distress Head exam: Present: atraumatic (Impression of the right frontal sinus region.), normocephalic, normal inspection, other Eye exam: Present: normal appearance, PERRL, EOMI. Absent: scleral icterus, conjunctival injection, periorbital swelling ENT exam: Present: normal exam, mucous membranes moist Neck exam: Present: normal inspection, full ROM, other (No stridor JVD or bruits). Absent: tenderness, meningismus, lymphadenopathy Respiratory exam: Present: normal lung sounds bilaterally. Absent: respiratory distress, wheezes, rales, rhonchi, stridor Cardiovascular Exam: Present: regular rate, normal rhythm, normal heart sounds. Absent: systolic murmur, diastolic murmur, rubs, gallop, clicks GI/Abdominal exam: Present: soft, normal bowel sounds. Absent: distended, tenderness, guarding, rebound, rigid Extremities exam: Present: normal inspection, full ROM, normal capillary refill. Absent: tenderness, pedal edema, joint swelling, calf tenderness Back exam: Present: normal inspection Neurological exam: Present: alert, oriented X3, CN II-XII intact Psychiatric exam: Present: normal affect, normal mood Skin exam: Present: warm, dry, intact, normal color. Absent: rash Stroke MDM - Lab Data Result diagrams: 07/31/19 08:40 07/31/19 08:40 Lab Results 07/31/19 07/31/19 07/31/19 Range/Units 08:40 08:40 08:40 WBC 15.0 H (3.8-10.6) k/uL RBC 4.90 (4.30-5.90) m/uL Hgb 14.9 (13.0-17.5) gm/dL Hct 46.1 (39.0-53.0) % MCV 94.1 (80.0-100.0) fL MCH 30.3 (25.0-35.0) pg MCHC 32.2 (31.0-37.0) g/dL RDW 13.2 (11.5-15.5) % Plt Count 235 (150-450) k/uL Neutrophils % 91 % Lymphocytes % 5 % Monocytes % 3 % Eosinophils % 1 % Basophils % 0 % Neutrophils # 13.6 H (1.3-7.7) k/uL Lymphocytes # 0.7 L (1.0-4.8) k/uL Monocytes # 0.5 (0-1.0) k/uL Eosinophils # 0.1 (0-0.7) k/uL Basophils # 0.0 (0-0.2) k/uL PT 10.6 (9.0-12.0) sec INR 1.0 (<1.2) APTT 23.2 (22.0-30.0) sec Sodium 137 (137-145) mmol/L Potassium 4.3 (3.5-5.1) mmol/L Chloride 105 (98-107) mmol/L Carbon Dioxide 22 (22-30) mmol/L Anion Gap 10 mmol/L BUN 19 (9-20) mg/dL Creatinine 1.06 (0.66-1.25) mg/dL Est GFR (CKD-EPI)AfAm 73 (>60 ml/min/1.73 sqM) Est GFR (CKD-EPI)NonAf 63 (>60 ml/min/1.73 sqM) Glucose 131 H (74-99) mg/dL Calcium 9.3 (8.4-10.2) mg/dL Total Bilirubin 0.7 (0.2-1.3) mg/dL AST 22 (17-59) U/L ALT 17 (4-49) U/L Alkaline Phosphatase 100 (38-126) U/L Creatine Kinase 81 (55-170) U/L Troponin I (0.000-0.034) ng/mL Total Protein 7.6 (6.3-8.2) g/dL Albumin 4.0 (3.5-5.0) g/dL 07/31/19 Range/Units 08:40 WBC (3.8-10.6) k/uL RBC (4.30-5.90) m/uL Hgb (13.0-17.5) gm/dL Hct (39.0-53.0) % MCV (80.0-100.0) fL MCH (25.0-35.0) pg MCHC (31.0-37.0) g/dL RDW (11.5-15.5) % Plt Count (150-450) k/uL Neutrophils % % Lymphocytes % % Monocytes % % Eosinophils % % Basophils % % Neutrophils # (1.3-7.7) k/uL Lymphocytes # (1.0-4.8) k/uL Monocytes # (0-1.0) k/uL Eosinophils # (0-0.7) k/uL Basophils # (0-0.2) k/uL PT (9.0-12.0) sec INR (<1.2) APTT (22.0-30.0) sec Sodium (137-145) mmol/L Potassium (3.5-5.1) mmol/L Chloride (98-107) mmol/L Carbon Dioxide (22-30) mmol/L Anion Gap mmol/L BUN (9-20) mg/dL Creatinine (0.66-1.25) mg/dL Est GFR (CKD-EPI)AfAm (>60 ml/min/1.73 sqM) Est GFR (CKD-EPI)NonAf (>60 ml/min/1.73 sqM) Glucose (74-99) mg/dL Calcium (8.4-10.2) mg/dL Total Bilirubin (0.2-1.3) mg/dL AST (17-59) U/L ALT (4-49) U/L Alkaline Phosphatase (38-126) U/L Creatine Kinase (55-170) U/L Troponin I <0.012 (0.000-0.034) ng/mL Total Protein (6.3-8.2) g/dL Albumin (3.5-5.0) g/dL - NIH Stroke Scale 1a. Level of Consciousness: (0) alert 1b. LOC Questions: (0) answers correctly 1c. LOC Commands: (0) performs tasks correctly 2. Best Gaze: (0) normal 3. Visual: (0) no visual loss 4. Facial Palsy: (0) normal symmetrical movement 5a. Motor Arm Left: (0) no drift 5b. Motor Arm Right: (0) no drift 6a. Motor Leg Left: (0) no drift 6b. Motor Leg Right: (0) no drift 7. Limb Ataxia: (0) absent 8. Sensory: (1) mild/moderate sensory loss 9. Best Language: (0) no aphasia 10. Dysarthria: (0) normal 11. Extinction/Inattention: (0) no abnormality - Medical Decision Making Patient did present with sudden onset of confusion and numbness to the right upper extremity which later progressed the right lower extremity. This is while he was in the shower. This is a similar presentation to what he had in May this past year. The symptoms had resolved by the time the patient hit the emergency department. He did come in by EMS. During his stay he did complain of some frontal headache which is seen to be reproducible percussion he also complains some right facial numbness and right upper or lower extremity numbness and heaviness. On clinical exam he did seem to have some slight weakness to both extremities. This was after the recurrence after the patient in the emergency department for a period of time. CT plane brain showed no acu te findings CT angiogram showed no evidence of obstruction. The interventional neurologist, Dr. Torres was consulted for [place] stroke was called patient is a candidate for medical management. He will be transferred to [facility] the accepting physician at the emergency department as Dr. Garcia. Patient will be transferred by EMS. He currently is re-evaluated is awake alert oriented 3 does seem to have resolution. I did discuss case also with the patient's family was present - EKG Data -: EKG Interpreted by Me EKG shows normal: sinus rhythm (Sinus rhythm with blocked PAC rate was 77 appear interval 206 QRS duration 84 QT since QTC 366/414) Past Medical History Past Medical History: Chest Pain / Angina, GERD/Reflux, Hyperlipidemia, Hypertension, Pneumonia Additional Past Medical History / Comment(s): Ocular migraines which have increased significantly per pt in the past 2 weeks, cervical pain/DDD, lumbar pain with ruptured discs, L hip pain (bone on bone), diverticular disease, hiatal hernia, vertigo, urinary retention. History of Any Multi-Drug Resistant Organisms: None Reported Past Surgical History: Adenoidectomy, Cholecystectomy, Heart Catheterization, Hernia Repair, Tonsillectomy Additional Past Surgical History / Comment(s): R inguinal hernia [place]par[place] x2, colonoscopies, bilateral cataract removals/lens implants. Past Anesthesia/Blood Transfusion Reactions: No Reported Reaction, Motion Sickness Past Psychological History: No Psychological Hx Reported Smoking Status: Never smoker - Past Family History Father Family Medical History: CVA/TIA Additional Family Medical History / Comment(s): Father of a cerebral hemorrhage at the age of 55 yrs. Mother Family Medical History: No Reported History Additional Family Medical History / Comment(s): Mother was healthy and lived to be 94 yrs old. Sister(s) Additional Family Medical History / Comment(s): Patient has sister that at 6 months old had congenital heart defect. Course Vital Signs 07/31/19 07/31/19 08:30 09:53 Temperature 98 F 98 F Pulse Rate 94 88 Respiratory 18 18 Rate Blood Pressure 180/82 138/70 O2 Sat by Pulse 93 L 94 L Oximetry - Reevaluation(s) Reevaluation #1: 07/31/19 10:42 Patient did have recurrent symptoms while in the emergency department he was seen briefly by Dr. Arce and by me did have what appeared to be right upper and lower extremity weakness that was new since his arrival. 07/31/19 10:43 A code stroke was called Dr. Torres did evaluate the scans and presentation patient is a candidate for medical management with aspirin and Plavix. The patient did take Plavix this morning and 81 mg of aspirin already. He will be transferred to [facility]. Critical Care Time Critical Care Time: Yes Critical Care Time: 42 minutes of critical care time which includes initial presentation with history physical labs x-rays multiple reevaluations the patient. Review of old charting was available discussed with Dr. Arce as well as the neuro interventional physician and the ER physician at [facility]. Includes discussion with the medics taken the patient. Patient retook Plavix today he was given additional aspirin. He is stable for transfer Disposition Clinical Impression: TIA (transient ischemic attack) Disposition: OTHER INSTITUTION NOT DEFINED Condition: Stable Is patient prescribed a controlled substance at d/c from ED?: No Referrals: Liz Arce MD [Primary Care Provider] - 1-2 days - Out of Hospital Transfer - Req. Specs Out of Hospital Transfer - Requested Specifics: Other Emergency Center
[2019-07-31 08:53] LABS: Basophils % (A) 0 %; Eosinophils # (A) 0.1 k/uL (0-0.7); Eosinophils % (A) 1 %; HCT 46.1 % (39.0-53.0); HGB 14.9 gm/dL (13.0-17.5); Lymphocytes # (A) 0.7 k/uL (1.0-4.8); Lymphocytes % (A) 5 %; MCH 30.3 pg (25.0-35.0); MCHC 32.2 g/dL (31.0-37.0); MCV 94.1 fL (80.0-100.0); Mean Platelet Volume 7.7; Monocytes # (A) 0.5 k/uL (0-1.0); Monocytes % (A) 3 %; Neutrophils # (A) 13.6 k/uL (1.3-7.7); Neutrophils % (A) 91 %; Platelet Count 235 k/uL (150-450); RDW 13.2 % (11.5-15.5)
[2019-07-31 09:01] LABS: Calcium 9.3 mg/dL (8.4-10.2); Potassium 4.3 mmol/L (3.5-5.1); Total Bilirubin 0.7 mg/dL (0.2-1.3); Total Protein 7.6 g/dL (6.3-8.2)
[2019-07-31 09:13] LABS: Partial Thromboplastin Time 23.2 sec (22.0-30.0); Prothrombin Time 10.6 sec (9.0-12.0)
--- NOTE | 2019-07-31 09:25 | XR ---
EXAMINATION TYPE: XR chest 2V DATE OF EXAM: 07/31/2019 HISTORY: altered mental status. REFERENCE: Previous study dated 07/04/2019. FINDINGS: There is elevation of the left hemidiaphragm. Heart size upper limits of normal. There is m ild vascular congestion and subtle interstitial change. I could not exclude a mild degree of heart fa ilure. There are TB angle is blunted and I could not exclude a tiny effusion. IMPRESSION: PLEASE CORRELATE FOR MILD CONGESTIVE HEART FAILURE.
--- NOTE | 2019-07-31 09:46 | CT ---
EXAMINATION TYPE: CT brain wo con for TPA DATE OF EXAM: 07/31/2019 COMPARISON: Previous study dated 06/13/2019 HISTORY: Possible TIA CT DLP: 1088 mGycm Automated exposure control for dose reduction was used. FINDINGS: There are generalized changes of sulcal prominence and ventriculomegaly, compatible with atrophic remedios nge. There is diffuse periventricular white matter lucency, compatible with chronic white matter isch emic change. There is minimal physiologic calcification of the right basal ganglia. There is no acute focal lesion, mass effect or midline shift identified. I do not see evidence of intracranial blood. There is mild mucoperiosteal thickening involving the ethmoid sinuses. The remainder the paranasal si nuses and mastoids are clear. The bony calvarium is intact. IMPRESSION: 1. NO ACUTE INTRACRANIAL ABNORMALITY. 2. DEGENERATIVE CHANGE.
--- NOTE | 2019-07-31 10:11 | CT ---
EXAMINATION TYPE: CT angio head neck DATE OF EXAM: 07/31/2019 HISTORY: possible TIA COMPARISON: None. CT DLP: 410.6 mGycm. Automated Exposure Control for Dose Reduction was Utilized. TECHNIQUE: CTA scan of the neck is performed without and with IV Contrast, patient injected with 65 ml mL of Isovue 370, axial images are obtained, coronal and sagittal reformatted images are reviewed. Three-D reconstructed images are created on an independent workstation and reviewed. FINDINGS: There are emphysematous changes within the lungs. There is patchy bilateral airspace diseas e. The major salivary glands are unremarkable. The parapharyngeal and oropharyngeal soft tissues are normal. There is some asymmetry in the laryngea l soft tissues with mild prominence on the left. There is no significant cervical adenopathy. Within the cervical spine, vertebral body height and alignment are maintained. Atlantoaxial relations hips are normal. There is diffuse degenerative disc disease and hypertrophic spondylosis at virtually all levels most marked at C3-4 and C5-6. There is diffuse uncovertebral joint disease. There is face t arthropathy bilaterally at C2-3 and more pronounced at C3-4 and C4-5 but present at all levels. There is a normal origin of the great vessels. There is mild atheromatous plaque at the level of the left carotid bulb. There is no significant plaque at the right carotid bulb. There is, however, no si gnificant left-sided stenosis. The left vertebral artery is dominant. CT of the [place] demonstrates patent posterior communicating arteries bilaterally as well a s a patent anterior communicating artery. There are 2 anterior cerebral artery vessels. There is norm al arborization of the middle cerebral artery. There appears to be a origin of the right delivery nurse ior cerebral artery. The posterior circulation is otherwise unremarkable. No sizable aneurysm is visu alized. IMPRESSION: 1. NO HEMODYNAMICALLY SIGNIFICANT STENOSIS IN EITHER CAROTID SYSTEM. 2. NORMAL CTA OF THE PORT LIONS OF [place]. 3. EMPHYSEMATOUS CHANGES WITHIN THE LUNGS. 4. PATCHY BILATERAL AIRSPACE DISEASE. 5. DEGENERATIVE CHANGES WITHIN THE CERVICAL SPINE.
[2019-07-31] MEDS ORDERED: ASPIRIN 81 MG PO STA (10:37)
[2019-07-31 11:25] VITALS: BP 147/81; PULSE 70; RESP 19; TEMP 98.1
== END 2019-07-31 12:20 | disposition other institution (70) ==
LOC: EC 08:22
DX: G45.9 Transient cerebral ischemic attack, unspecified (principal); I10 Essential (primary) hypertension; E78.5 Hyperlipidemia, unspecified; R05 Cough; I25.2 Old myocardial infarction; Z95.5 Presence of coronary angioplasty implant and graft; Z79.52 Long term (current) use of systemic steroids; Z86.69 Personal history of other diseases of the nervous system and sense organs; Z79.899 Other long term (current) drug therapy; Z88.2 Allergy status to sulfonamides; Z82.3 Family history of stroke
CPT/HCPCS: 36415; 93005; 80053; 82550; 84484; 85025; 85610; 85730; 71046; 70496; 70450; 70498; 99291; Q9967

== ENCOUNTER 2019-11-28 07:24 | Emergency (ER) | payer MEDICARE, BC ==
[2019-11-28 07:30] VITALS: TEMP 98.5
[2019-11-28] MEDS ORDERED: SILVER NITRATE APPLICATOR 1 EACH STICK..EA. TOPICAL STA (07:38)
--- NOTE | 2019-11-28 07:49 | ED ---
General Adult HPI - General Chief complaint: ENT Stated complaint: nose bleed Time Seen by Provider: 11/28/19 07:27 Source: patient Mode of arrival: ambulatory Limitations: no limitations - History of Present Illness Initial comments: Dictation was produced using [employer] dictation software. please excuse any grammatical, word or spelling errors. This patient was cared for during a federal and state declared state of emergency secondary to Covid 19 Chief Complaint: 89-year-old male presents with epistaxis History of Present Illness: 89-year-old male who presents today with epistaxis. He states that his nose bleeding started couple hours ago. Patient has no history of nasal bleeding however he did have one episode within the last week. Patient states his initial episode resolved on its own. Patient states his nose bleedings started when he was started on Plavix for stroke. Patient currently is a resident at [facility]. He is brought in by EMS. Patient denies any pain complaints. No nausea vomiting or diarrhea. Patient reports she is on a blood thinner however not sure the name of his medication. The ROS documented in this emergency department record has been reviewed and confirmed by me. Those systems with pertinent positive or negative responses have been documented in the HPI. All other systems are other negative and/or noncontributory. PHYSICAL EXAM: General Impression: Alert and oriented x3, not in acute distress HEENT: Normocephalic atraumatic, extra-ocular movements intact, pupils equal and reactive to light bilaterally, mucous membranes moist. L naris: Non-brisk from the right nasal septum Cardiovascular: Heart regular rate and rhythm Chest: Able to complete full sentences, no retractions, no tachypnea Abdomen: abdomen soft, non-tender, non-distended, no organomegaly Musculoskeletal: Pulses present and equal in all extremities, no peripheral edema Motor: no focal deficits noted Neurological: CN II-XII grossly intact, no focal motor or sensory deficits noted Skin: Intact with no visualized rashes Psych: Normal affect and mood ED course: 89-year-old male presents today with epistaxis. Vital signs upon arrival are within acceptable limits. Medications were reviewed. Patient is on Plavix. No anticoagulation medications noted in his medication list according to EMR. Bleeding localized to the right inferior nasal septum. Cautery was attempted.Patient was observed in the emergency department after attempted cautery with persistent bleeding. Merocel packing was placed in the left naris. He was then observed again for another several minutes with good control of bleeding. Patient prescription for Keflex for prophylaxis. Laboratory evaluation unremarkable. Patient given follow-up with ENT for outpatient management of epistaxis. - Related Data Home Medications Medication Instructions Recorded Confirmed Losartan [Cozaar] 50 mg PO DAILY 10/29/14 07/31/19 amLODIPine [Norvasc] 5 mg PO DAILY 10/29/14 07/31/19 Tamsulosin HCl [Flomax] 0.4 mg PO DAILY 01/06/17 07/31/19 Cholecalciferol [Vitamin D3 (25 5,000 unit PO HS 06/13/19 07/31/19 Mcg = 1000 Iu)] Benzonatate [Tessalon Perles] 100 mg PO TID PRN 07/31/19 07/31/19 Cyanocobalamin (Vitamin B-12) 2,500 mcg PO HS 07/31/19 07/31/19 [Vitamin B-12] predniSONE See Taper PO DAILY 07/31/19 07/31/19 Previous Rx's Medication Instructions Recorded Aspirin EC [Ecotrin Low Dose] 81 mg PO DAILY #90 tablet. 06/14/19 Atorvastatin [Lipitor] 40 mg PO HS #30 tab 06/14/19 Clopidogrel Bisulfate [Plavix] 75 mg PO DAILY #21 tab 06/14/19 Cephalexin [Keflex] 500 mg PO Q6HR 5 Days #20 cap 11/28/19 Allergies Allergy/AdvReac Type Severity Reaction Status Date / Time Sulfa (Sulfonamide Allergy Unknown Verified 11/28/19 07:30 Antibiotics) Review of Systems ROS Statement: Those systems with pertinent positive or pertinent negative responses have been documented in the HPI. ROS Other: All systems not noted in ROS Statement are negative. Past Medical History Past Medical History: Chest Pain / Angina, CVA/TIA, GERD/Reflux, Hyperlipidemia, Hypertension, Pneumonia Additional Past Medical History / Comment(s): Ocular migraines which have i ncreased significantly per pt in the past 2 weeks, cervical pain/DDD, lumbar pain with ruptured discs, L hip pain (bone on bone), diverticular disease, hiatal hernia, vertigo, urinary retention. 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 Past Anesthesia/Blood Transfusion Reactions: No Reported Reaction, Motion Sickness Past Psychological History: No Psychological Hx Reported Smoking Status: Never smoker - Past Family History Father Family Medical History: CVA/TIA Additional Family Medical History / Comment(s): Father of a cerebral hemorrhage at the age of 55 yrs. Mother Family Medical History: No Reported History Additional Family Medical History / Comment(s): Mother was healthy and lived to be 94 yrs old. Sister(s) Additional Family Medical History / Comment(s): Patient has sister that at 6 months old had congenital heart defect. General Exam Limitations: no limitations Course Vital Signs 11/28/19 11/28/19 07:26 08:30 Temperature 98.5 F Pulse Rate 75 66 Respiratory 18 16 Rate Blood Pressure 171/78 136/68 O2 Sat by Pulse 100 100 Oximetry Medical Decision Making - Lab Data Result diagrams: 11/28/19 07:52 11/28/19 07:52 Lab Results 11/28/19 11/28/19 11/28/19 Range/Units 07:52 07:52 07:52 WBC 5.7 (3.8-10.6) k/uL RBC 4.94 (4.30-5.90) m/uL Hgb 14.7 (13.0-17.5) gm/dL Hct 46.3 (39.0-53.0) % MCV 93.7 (80.0-100.0) fL MCH 29.8 (25.0-35.0) pg MCHC 31.8 (31.0-37.0) g/dL RDW 13.2 (11.5-15.5) % Plt Count 186 (150-450) k/uL Neutrophils % 67 % Lymphocytes % 19 % Monocytes % 7 % Eosinophils % 5 % Basophils % 1 % Neutrophils # 3.8 (1.3-7.7) k/uL Lymphocytes # 1.1 (1.0-4.8) k/uL Monocytes # 0.4 (0-1.0) k/uL Eosinophils # 0.3 (0-0.7) k/uL Basophils # 0.0 (0-0.2) k/uL PT 10.6 (9.0-12.0) sec INR 1.0 (<1.2) APTT 24.7 (22.0-30.0) sec Sodium (137-145) mmol/L Potassium (3.5-5.1) mmol/L Chloride (98-107) mmol/L Carbon Dioxide (22-30) mmol/L Anion Gap mmol/L BUN (9-20) mg/dL Creatinine (0.66-1.25) mg/dL Est GFR (CKD-EPI)AfAm (>60 ml/min/1.73 sqM) Est GFR (CKD-EPI)NonAf (>60 ml/min/1.73 sqM) Glucose (74-99) mg/dL Calcium (8.4-10.2) mg/dL Blood Type O Negative Blood Type Recheck No Previous Record Bld Type Recheck Status CABO Indicated Antibody Screen NEGATIVE Spec Expiration Date 12/01/2019 - 235111/28/19 Range/Units 07:52 WBC (3.8-10.6) k/uL RBC (4.30-5.90) m/uL Hgb (13.0-17.5) gm/dL Hct (39.0-53.0) % MCV (80.0-100.0) fL MCH (25.0-35.0) pg MCHC (31.0-37.0) g/dL RDW (11.5-15.5) % Plt Count (150-450) k/uL Neutrophils % % Lymphocytes % % Monocytes % % Eosinophils % % Basophils % % Neutrophils # (1.3-7.7) k/uL Lymphocytes # (1.0-4.8) k/uL Monocytes # (0-1.0) k/uL Eosinophils # (0-0.7) k/uL Basophils # (0-0.2) k/uL PT (9.0-12.0) sec INR (<1.2) APTT (22.0-30.0) sec Sodium 139 (137-145) mmol/L Potassium 4.4 (3.5-5.1) mmol/L Chloride 104 (98-107) mmol/L Carbon Dioxide 24 (22-30) mmol/L Anion Gap 11 mmol/L BUN 18 (9-20) mg/dL Creatinine 1.05 (0.66-1.25) mg/dL Est GFR (CKD-EPI)AfAm 74 (>60 ml/min/1.73 sqM) Est GFR (CKD-EPI)NonAf 64 (>60 ml/min/1.73 sqM) Glucose 105 H (74-99) mg/dL Calcium 9.5 (8.4-10.2) mg/dL Blood Type Blood Type Recheck Bld Type Recheck Status Antibody Screen Spec Expiration Date Disposition Clinical Impression: Epistaxis Disposition: HOME SELF-CARE Condition: Good Instructions (If sedation given, give patient instructions): Nosebleed (ED) Prescriptions: Cephalexin [Keflex] 500 mg PO Q6HR 5 Days #20 cap Is patient prescribed a controlled substance at d/c from ED?: No Referrals: Faisal Anderson MD [STAFF PHYSICIAN] - 1-2 days Time of Disposition: 08:47
[2019-11-28 08:06] LABS: Basophils % (A) 1 %; Eosinophils # (A) 0.3 k/uL (0-0.7); Eosinophils % (A) 5 %; HCT 46.3 % (39.0-53.0); HGB 14.7 gm/dL (13.0-17.5); Lymphocytes # (A) 1.1 k/uL (1.0-4.8); Lymphocytes % (A) 19 %; MCH 29.8 pg (25.0-35.0); MCHC 31.8 g/dL (31.0-37.0); MCV 93.7 fL (80.0-100.0); Mean Platelet Volume 7.9; Monocytes # (A) 0.4 k/uL (0-1.0); Monocytes % (A) 7 %; Neutrophils # (A) 3.8 k/uL (1.3-7.7); Neutrophils % (A) 67 %; Platelet Count 186 k/uL (150-450); RBC 4.94 m/uL (4.30-5.90); RDW 13.2 % (11.5-15.5); WBC 5.7 k/uL (3.8-10.6)
[2019-11-28 08:14] LABS: Partial Thromboplastin Time 24.7 sec (22.0-30.0); Prothrombin Time 10.6 sec (9.0-12.0)
[2019-11-28 08:31] LABS: Calcium 9.5 mg/dL (8.4-10.2); Potassium 4.4 mmol/L (3.5-5.1)
[2019-11-28 08:32] VITALS: BP 136/68; PULSE 66; RESP 16
== END 2019-11-28 08:57 | disposition home or self-care (01) ==
LOC: EC 07:24
DX: R04.0 Epistaxis (principal); I10 Essential (primary) hypertension; Z86.73 Personal history of transient ischemic attack (TIA), and cerebral infarction without residual deficits; Z95.818 Presence of other cardiac implants and grafts; Z79.52 Long term (current) use of systemic steroids; Z79.899 Other long term (current) drug therapy; Z88.2 Allergy status to sulfonamides
CPT/HCPCS: 30901; 36415; 80048; 85025; 85610; 85730; 86850; 86900; 86901; 99283

== ENCOUNTER → 2020-02-27 | Outpatient (CLI) | payer MEDICARE, BC ==
--- NOTE | 2020-02-28 18:14 | CT ---
EXAMINATION TYPE: CT chest w con DATE OF EXAM: 02/27/2020 COMPARISON: CT chest 02/20/2017 HISTORY: Lung nodule. CT DLP: 392.1 mGycm Automated exposure control for dose reduction was used. CONTRAST: CT scan of the chest is performed with IV Contrast, patient injected with 100 mL of Isovue M300. FINDINGS: LUNGS: Lungs are grossly clear. There is a 4 mm pulmonary nodule of the right upper lobe (4:16). Calc ified nodule of the left upper lobe (4:17). Redemonstrated mild bilateral lower lobe bronchiectasis. No pleural effusion. No pneumothorax. The tracheobronchial tree is patent. MEDIASTINUM/SOFT TISSUES: No axillary, hilar, or mediastinal lymphadenopathy greater than 1 cm. Cardi ac size is normal. No pericardial effusion. No thoracic aortic aneurysm. UPPER ABDOMEN: Hepatic cystic lesions and too small to characterize hypodensities. OSSEOUS: Degenerative changes of the spine. IMPRESSION: 4 mm pulmonary nodule of the right upper lobe. Per Fleischner 2017 criteria if the patient is low ris k no follow-up may be clinically indicated. If the patient is high risk, optional CT can be performed to 12 months.
== END | disposition home or self-care (01) ==
LOC: RADCTMAIN 13:22
PROVIDERS: ATTEND Internal Medicine Critical Care Medicine
DX: R91.1 Solitary pulmonary nodule (principal)
CPT/HCPCS: 82565; 84520; 71260; 36415; Q9967